=== PATIENT | female | born 1940 | race Caucasian/White ===

== ENCOUNTER 2016-08-30 09:09 | Inpatient (IN) ==
[2016-08-30] MEDS ORDERED: ACETAMINOPHEN 325 MG TABLET PO PRN (11:44)
[2016-08-30] MEDS ORDERED: ONDANSETRON 4 MG/2 ML VIAL IV PRN (11:44)
[2016-08-30] MEDS ORDERED: ZALEPLON 5 MG CAPSULE PO PRN (11:44)
[2016-08-30] MEDS ORDERED: DOCUSATE SODIUM 100 MG CAPSULE PO PRN (11:44)
[2016-08-30] MEDS ORDERED: MAGNESIUM SULF RIDER 2 GM in PREMIX 1 EACH IV PRN (11:46)
[2016-08-30] MEDS ORDERED: MAGNESIUM SULF RIDER 4 GM in PREMIX 1 EACH IV PRN (11:46)
--- NOTE | 2016-08-30 12:22 | EKG Report ---
Stationary ECG Study [facility] Test Date: 08/30/2016 12:22:21 PM Pat Name: NILSA BRONSON Department: Room: 265 Gender: F Custodial Manager: [place] : 1940 Requested by: Isabela Jaramillo Order Number: [id number] Cami MD: GORDON DE LEON Intervals [place] Rate: 70 P: 999 [place]: 0 QRS: -78 QRSD: 173 T: 96 QT: 476 QTc: 496 Interpretive Statements ELECTRONIC VENTRICULAR PACEMAKER ABNORMAL RHYTHM ECG Electronically Signed On 08-30-16 17:12:28 CDT by GORDON DE LEON [email or web address]
--- NOTE | 2016-08-30 12:46 | Cardiology History & Physical ---
Assessment and Plan - Time spent with patient Time spent with patient: Less than 30 minutes (1) Volume overload Status: Acute Assessment and plan: See plan of care listed below. Current Visit: Yes (2) Paroxysmal atrial fibrillation Status: Chronic Assessment and plan: See plan of care listed below. Current Visit: No (3) Chronic anticoagulation Status: Chronic Assessment and plan: See plan of care listed below. Current Visit: No (4) History of atrioventricular evans ablation Status: Chronic Assessment and plan: See plan of care listed below. Current Visit: Yes (5) Status post placement of cardiac pacemaker Status: Chronic Assessment and plan: See plan of care listed below. Current Visit: No (6) Hypertension Status: Chronic Assessment and plan: See plan of care listed below. Current Visit: No (7) Hyperlipidemia Status: Chronic Assessment and plan: See plan of care listed below. Current Visit: No (8) IBS (irritable bowel syndrome) Status: Chronic Assessment and plan: See plan of care listed below. Current Visit: Yes (9) GERD (gastroesophageal reflux disease) Status: Acute Assessment and plan: See plan of care listed below. Current Visit: Yes (10) Diverticulosis Status: Chronic Assessment and plan: See plan of care listed below. 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 AVENDAÑO PCP: DR. JULIA GREEN Ms. Espino is a 76 year old female who has been followed by Dr. Avendaño for several years. She has a history of paroxysmal atrial fibrillation, pulmonary hypertension, diverticulosis, GERD, esophageal stricture, hypertension , hyperlipidemia. Risk factors are significant for: age, hypertension, dyslipidemia, sedentary lifestyle. She is also followed by cardiology at [facility] in [place], [place] since her son resides in [place]. She has been cardioverted on numerous occasions (9 total) with the last being 12/21/15. She is status post AV node ablation and [employer] dual-chamber pacemaker implant 04/12/16. She is chronically anticoagulated with Coumadin. She was transferred to our facility as a direct admit from [facility] for further evaluation of congestive heart failure. Ms. Espino presented to [facility] on 08/28/16 after having a near syncopal episode and a feeling of tightness around the upper abdomen. She has noticed increased dyspnea on exertion in the past few months and lower extremity edema. She has also complained of some nausea and frequent palpitations. Yesterday, her proBNP was 3302.8. Clinically, she looks good, she has no peripheral edema and her lungs are fairly clear. She was recently seen in clinic by Dr. Avendaño on . At that time, she complained of occasional palpitations, BLE edema, and SLATER. Her pacemaker was interrogated and her rate response parameters were changed to see if her heart rate could be allowed to come up more significantly with exercise. Recent holter monitor revealed a predominantly ventricular paced rhythm with rare PVCs with minimum HR 67 and maximum HR 108 with average of 72 bpm. Ms. Espino recently underwent a myocardial perfusion stress test at [facility] on which revealed an ejection fraction of 61% and normal myocardial perfusion images, unchanged from 10/26/11 study. EKG today shows a ventricular paced rhythm. Will further discuss with Dr. Avendaño and await additional recommendations. ASSESSMENT/PLAN: 1. VOLUME OVERLOAD - Will continue diuresis with IV Lasix. Monitor BMP, BNP. 2. PAROXYSMAL ATRIAL FIBRILLATION - Currently in a ventricular paced rhythm. 3. CHRONIC ANTICOAGULATION - Continue coumadin. INR 1.4 today. Will monitor PT/ INR. 4. S/P AV EVANS ABLATION - Done on 04/12/16. 5. S/P DUAL CHAMBER PACEMAKER IMPLANTATION - Done on 04/12/16 at [facility]. Patient has a [employer] device. 6. HYPERTENSION - Currently well controlled. Will continue to monitor and adjust accordingly. Continue beta patrizia, ARB, CCB. 7. HYPERLIPIDEMIA - Continue lipid-lowering agent. Will recheck lipid panel in AM. 8. IBS 9. GERD 10. DIVERTICULOSIS Home Medications Medication Instructions Recorded Confirmed Type Ascorbic Acid [Vitamin C] 1,000 mg PO BID 07/04/16 07/04/16 History Aspirin EC Tab 81 mg PO DAILY 07/04/16 07/04/16 History Cholecalciferol (Vitamin D3) 1,000 unit PO DAILY 07/04/16 07/04/16 History [Vitamin D3] Estradiol Tab [Estrace Tab] 0.5 mg PO QOTHER DAY 07/04/16 07/04/16 History Magnesium Oxide [Magox 400] 400 mg PO BID 07/04/16 07/04/16 History Metoprolol Tartrate Tab [Lopressor 50 mg PO BID 07/04/16 07/04/16 History Tab] Mometasone 50 Mcg Nasal Prim 2 spray BOTH NARES DAILY 07/04/16 07/04/16 History [Nasonex Nasal Prim] Pantoprazole Tab [Protonix Tab] 40 mg PO DAILY 07/04/16 07/04/16 History Warfarin [Coumadin] 5 mg PO QOTHER DAY@1800 07/04/16 07/04/16 History Warfarin [Coumadin] 7.5 mg PO QOTHER DAY@1800 07/04/16 07/04/16 History amLODIPine [Norvasc] 5 mg PO DAILY 07/04/16 07/04/16 History Allergies Allergy/AdvReac Type Severity Reaction Status Date / Time cefuroxime [From Ceftin] Allergy Verified 07/04/16 08:49 ciprofloxacin [From Cipro] Allergy Verified 07/04/16 08:49 codeine Allergy Verified 07/04/16 08:49 ondansetron Allergy Verified 07/04/16 08:49 [From Zofran (as hydrochloride)] pentazocine [From Talwin] Allergy Verified 07/04/16 08:49 Qgciltc-Jhs-Jeu Reductase Allergy Verified 07/04/16 08:49 Inhibitor Sulfa (Sulfonamide Allergy Verified 07/04/16 08:49 Antibiotics) tramadol [From Ultram] Allergy Verified 07/04/16 08:49 antihistamines Allergy Uncoded 07/04/16 08:49 Review of systems: - Constitutional: Present: fatigue, As per HPI. Absent: anorexia, chills, daytime sleepiness, excessive sweating, fever(s), frequent falls, headache(s), increased appetite, lethargy, malaise, night sweats, stops breathing during sleep, weakness, weight gain, weight loss. - EENT Eyes: Present: As per HPI. Absent: blurry vision, diplopia, loss of vision Ears: Present: As per HPI. Absent: decreased hearing, ear discharge, ear pain Nose, mouth and throat: Present: As per HPI. Absent: dysphagia, epistaxis, headache(s), hoarseness, lip swelling, nasal congestion, neck mass, neck pain, sinus pressure, sore throat, throat swelling, tongue swelling, vertigo - Cardiovascular: Present: dyspnea, dyspnea on exertion, edema, orthopnea, palpitations, lightheadedness, as per HPI. Absent: chest pain at rest, chest pain with activity, claudication, diaphoresis, radiating jaw, neck or arm pain, PND - Respiratory: Present: dyspnea, dyspnea on exertion, as per HPI. Absent: cough , hemoptysis, wheezing, snoring, pain on inspiration - Gastrointestinal: Present: abdominal pain, nausea, As per HPI. Absent: bloating, change in bowel habits, constipation, diarrhea, heartburn, hematemesis , hematochezia, loose stools, melena, vomiting - Genitourinary: Present: As per HPI. Absent: difficulty urinating, dysuria, flank pain, hematuria, nocturia, urinary frequency, urinary incontinence - Musculoskeletal: Present: As per HPI. Absent: arthralgias, back pain, joint swelling, limited range of motion, muscle cramps, muscle weakness, myalgias - Neurological: Present: near syncope, As per HPI. Absent: abnormal gait, abnormal speech, behavioral changes, confusion, convulsions, disequilibrium, dizziness, focal weakness, frequent falls, headache(s), memory loss, numbness, paresthesias, radicular pain, tremor(s) - Psychiatric: Present: As per HPI. Absent: anxiety, confusion, depression, panic attacks - Endocrine: Present: fatigue, As per HPI. Absent: cold intolerance, heat intolerance, polydipsia, polyphagia - Hematologic/Lymphatic: Present: As per HPI. Absent: easy bleeding, easy bruising, lymphadenopathy Medical,Surgical,& Family Hx - Medical History Cardio: History of: Cardiac Dysrhythmia (atrial fib), CAD, Hypertension, Pacemaker (march 2016), Cardiovascular Problems (Cardiac ablation x 3, Cardiac conversion x 9--2015) Neurology: No history of: Seizures HEENT: History of: Eye Problem (glasses) Endocrine: History of: Dyslipidemia No history of: Thyroid Disorder Respiratory: History of: Respiratory Problems (chronic sob with exertion) No history of: Obstructive Sleep Apnea Gastrointestinal: History of: GERD, GI Problems (esophageal spasms) No history of: Hepatitis, Liver Problems Musculoskeletal: History of: Back/Neck Problems (neck surgey on neck-1986) Hematology: History of: Anemia No history of: Blood Transfusion Reaction Other: No history of: Anesthesia Reactions, Cancer - Surgical History Cardiac Surgeries: Sugical HX of: Cardiac Catheterization (x2) Patient Denies: Internal Defibrillator HEENT Surgeries: Surgical HX of: Eye Surgery (cataracts) Patient denies: Tonsilectomy & Adenoidectomy Abdominal Surgeries: Surgical HX of: Appendectomy, Cholecystectomy, Colonoscopy , EGD Reproductive Surgeries: Surgical HX of;: Hysterectomy Patient denies;: Breast Surgery Orthopedic Surgeries: Surgical HX of;: Orthopedic Surgery (broken foot-2016), Total Knee Replacement (bilateral) - Family History Family History: Reports;: Family Cancer (mother-ovarian, sister-breast) - Social History Smoking Status: Never smoker Frequency of Alcohol Use: None Type of Drug Use: None Marital Status: Lives With:: Spouse Functional capacity: independent ambulation Cardiology Physical Exam - Constitutional Vitals: Vital Signs Temp Pulse Resp BP Pulse Ox 95.9 F L 70 18 132/63 98 08/30/16 12:13 08/30/16 12:13 08/30/16 12:13 08/30/16 12:13 08/30/16 12:13 Intake and Output 08/29/16 08/30/16 08/30/16 22:59 06:59 14:59 Other: Weight 164 lb Patient Weight 08/31/16 06:59 Weight 164 lb Exam: General appearance: Pleasant and cooperative. Normal weight, no acute distress. - Head Head exam: Present: normal inspection, normocephalic, atraumatic. Absent: hematoma, laceration - Eye Eye exam: Present: EOMI. Absent: conjunctival injection, nystagmus, periorbital swelling, scleral icterus, laceration to eyelids Pupils: Present: PERRL. Absent: constricted, dilated, fixed, irregular, unequal - ENT ENT exam: Present: normal exam, normal external ear exam - Neck Neck exam: Present: normal inspection. Absent: lymphadenopathy, meningismus, tenderness, thyromegaly - Respiratory Respiratory exam: Present: clear to auscultation bilaterally. Absent: accessory muscle use, chest wall tenderness - Cardiovascular Cardiovascular exam: Present: regular rate and rhythm (v-paced). Absent: carotid bruit, gallop, JVD, rubs, murmur - GI/Abdominal GI/Abdominal exam: Present: normal bowel sounds, soft. Absent: distended, firm , guarding, hernia, mass, tenderness, rebound. - Extremities Exam Extremities exam: Present: normal inspection, normal capillary refill. Upper extremity pulses 2+. Lower extremity pulses 2+. Absent: calf tenderness, edema -Musculoskeletal Exam Musculoskeletal: Present: No Fluid Collection, No Pain, Normal Range of Motion - Back Exam Back exam: Present: normal inspection. Absent: muscle spasm, vertebral tenderness - Neurological Exam Neurological exam: Present: alert, oriented X3, grossly intact without resting or essential tremor - Psychiatric Psychiatric exam: Present: normal affect, normal mood - Skin Skin exam: Present: normal color, warm, dry, intact. Absent: cyanosis, diaphoretic, rash, urticaria Result/EKG - Labs Lab Results: I have reviewed the past 24 hour labs - EKG EKG results: interpreted by me (ventricular paced)
--- NOTE | 2016-08-30 14:14 | EKG Report ---
Stationary ECG Study [facility] Test Date: 08/30/2016 2:15:18 PM Pat Name: NILSA BRONSON Department: Room: 265 Gender: F Licensed Optician: : 1940 Requested by: Karena Davis Order Number: [id number] Reading MD: GORDON DE LEON Intervals [place] Rate: 70 P: 999 [place]: 0 QRS: -82 QRSD: 173 T: 69 QT: 491 QTc: 511 Interpretive Statements ELECTRONIC VENTRICULAR PACEMAKER ABNORMAL RHYTHM ECG Electronically Signed On 08-30-16 17:12:54 CDT by GORDON DE LEON [id number]
[2016-08-30 15:56] LABS: Troponin I Only < 0.015 NG/ML (0.00-0.045)
[2016-08-30] MEDS ORDERED: FUROSEMIDE 40 MG/4 ML VIAL IV SCH (16:00)
--- NOTE | 2016-08-30 16:45 | ECHO Report ---
Thomas Espino Exam Date: 08/30/2016 16:03 Referring Physician: Technologist: Age: 76 Ht (in): Wt (lb): Gender: F Exam Location: [facility] Echo Indications: BP: / HR: Rhythm: Sinus Technical Quality: Fair IMPRESSIONS Normal left ventricular size and wall thickness Normal left ventricular systolic wall motion without segmental wall motion abnormality and ejection fraction estimated to be in the 55-60% range Mild aortic and mitral valvular sclerosis without evidence of stenosis or decreased leaflet excursion Left atrial dimension is within the range of normal Mild right ventricular enlargement Tricuspid insufficiency at velocities suggesting systolic PA pressures of 50 mmHg Aortic root dimension within the range of normal MEASUREMENTS (Male / Female) Normal Values 2D ECHO LV Diastolic Diameter PLAX 3.8 cm 4.2 - 5.9 / 3.9 - 5.3 cm LV Systolic Diameter PLAX 2.7 cm LV Fractional Shortening PLAX 30.0 % IVS Diastolic Thickness 1.1 cm 0.6 - 1.0 / 0.6 - 0.9 cm LVPW Diastolic Thickness 1.0 cm 0.6 - 1.0 / 0.6 - 0.9 cm RV Internal Dim ED PLAX 4.1 cm Aortic Root Diameter 3.2 cm LA Systolic Diameter LX 3.0 cm 3.0 - 4.0 / 2.7 - 3.8 cm DOPPLER TR Peak Velocity 314.0 cm/s TR Peak Gradient 39.4 mmHg FINDINGS Left Ventricle Right Ventricle Right Atrium Left Atrium Mitral Valve Aortic Valve Tricuspid Valve Pulmonic Valve Pericardium Aorta Luis Avendaño MD (Electronically Signed) Final Date: 30 August 2016 16:44
[2016-08-30 17:53] LABS: Apearance,Urine CLEAR (Clear); Bilirubin,Urine Negative (Negative); Blood, Urine Negative (Negative); Glucose,Urine (UA) Negative (Negative); Ketones,Urine Negative (Negative); Nitrite,Urine Negative (Negative); Protein,Urine Negative; RBC,Urine <1 /HPF (0-4); Squamous Epithelial Cell,Urine Occasional /HPF (0-10); Urine Color Straw (Yellow); Urine Specific Gravity 1.003 (1.001-1.035); Urine Urobilinogen < 2.0 EU/DL (0.2-1.0); WBC,Urine 1 /HPF (0-6)
[2016-08-30 20:36] LABS: Troponin I Only < 0.015 NG/ML (0.00-0.045)
[2016-08-30] MEDS: METOPROLOL TARTRATE 50 MG TABLET PO SCH (21:30)
[2016-08-30] MEDS: LOSARTAN 25 MG TABLET PO SCH (21:30)
[2016-08-30] MEDS: MAGNESIUM OXIDE 400 MG TABLET PO SCH (21:30)
[2016-08-30] MEDS: amLODIPine 5 MG TABLET PO SCH (21:30)
--- NOTE | 2016-08-30 22:00 | Electrophysiology Consultation ---
History of Present Illness - Data of Consult Patient: new to practice Consult date: 08/30/16 Requesting Physician: Luis Avendaño - Consult Narrative Reason for consult: SOB History of present illness: Ms. Espino is a 76 year old female, followed by dr. Avendaño. 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 She has a history of highly symptomatic, persistent atrial fibrillation, for which she was cardioverted multiple times, finally, several months ago, she underwent dual-chamber pacemaker implantation and AV node ablation at [facility]. Thereafter, her antiarrhythmics were discontinued. Besides sotalol, she does not recall prior medications. Since this procedure, her shortness of breath worsened and she felt persistent fatigue. She has intermittent, more symptomatic episodes of shortness of brest, sometimes with anxiety, and bilateral chest pressure. She had prior ischemic evaluation, which did not show obstructive CAD. Her prior echo also showed ejection fraction 50-55%. She had moderate pulmonary hypertension on recent echo and she remembers having a right heart catheterization at [facility], a few weeks ago, but she was also told she has pulmonary hypertension. She does not recall prior lung disease and she never smoked. She is overweight but not morbidly obese. Her EKG shows atrial fibrillation, with ventricular pacing. Reviewing her prior EKGs, she had A. fib and sinus rhythm, several months ago. Her blood pressure is well controlled. She had a outpatient Holter, which showed acceptable heart rate trend, and A. fib with paced rhythm. Her Lasix was recently increased, and she diuresed 14 pounds, which made her shortness of breath better. The most recent echo shows preserved systolic function, moderate pulmonary hypertension, elevated mitral inflow, but insufficient data to estimate diastolic function due to A. fib and paced rhythm. There are no severe valvular abnormalities. There is mild biatrial enlargement. CC: Luis Avendaño MD - Home Medications and Allergies Home Medications: Home Medications Medication Instructions Recorded Confirmed Type Aspirin EC Tab 81 mg PO DAILY 07/04/16 08/30/16 History Cholecalciferol (Vitamin D3) 1,000 unit PO DAILY 07/04/16 08/30/16 History [Vitamin D3] Estradiol Tab [Estrace Tab] 0.5 mg PO QOTHER DAY 07/04/16 08/30/16 History Magnesium Oxide [Magox 400] 400 mg PO BID 07/04/16 08/30/16 History Metoprolol Tartrate Tab [Lopressor 50 mg PO BID 07/04/16 08/30/16 History Tab] Pantoprazole Tab [Protonix Tab] 40 mg PO BEDTIME 07/04/16 08/30/16 History Warfarin [Coumadin] 5 mg PO MOWEFR 07/04/16 08/30/16 History Warfarin [Coumadin] 7.5 mg PO SUTUTHSA 07/04/16 08/30/16 History amLODIPine [Norvasc] 5 mg PO BID 07/04/16 08/30/16 History ALPRAZolam [Alprazolam] 1 mg PO BEDTIME 08/30/16 08/30/16 History Furosemide [Furosemide] 40 mg PO DAILY 08/30/16 08/30/16 History Losartan [Cozaar] 12.5 mg PO BID 08/30/16 08/30/16 History Tapentadol HCl [Nucynta] 50 mg PO Q6HR PRN 08/30/16 08/30/16 History Allergies/Adverse Reactions: Allergies Allergy/AdvReac Type Severity Reaction Status Date / Time cefuroxime [From Ceftin] Allergy Verified 07/04/16 08:49 ciprofloxacin [From Cipro] Allergy Verified 07/04/16 08:49 codeine Allergy Verified 07/04/16 08:49 ondansetron Allergy Verified 07/04/16 08:49 [From Zofran (as hydrochloride)] pentazocine [From Talwin] Allergy Verified 07/04/16 08:49 Hdqkabn-Yjd-Dpo Reductase Allergy Verified 07/04/16 08:49 Inhibitor Sulfa (Sulfonamide Allergy Verified 07/04/16 08:49 Antibiotics) tramadol [From Ultram] Allergy Verified 07/04/16 08:49 antihistamines Allergy Uncoded 07/04/16 08:49 Medical,Surgical,& Family Hx - Medical History Cardio: History of: Cardiac Dysrhythmia (atrial fib), CAD, Hypertension, Pacemaker (march 2016), Cardiovascular Problems (Cardiac ablation x 3, Cardiac conversion x 9--2015) No history of: CHF Neurology: No history of: Seizures HEENT: History of: Eye Problem (glasses) Endocrine: History of: Dyslipidemia No history of: Thyroid Disorder Respiratory: History of: Respiratory Problems (chronic sob with exertion) No history of: Obstructive Sleep Apnea Gastrointestinal: History of: GERD, GI Problems (esophageal spasms) No history of: Hepatitis, Liver Problems Musculoskeletal: History of: Back/Neck Problems (neck surgey on neck-1986) Hematology: History of: Anemia No history of: Blood Transfusion Reaction Other: No history of: Anesthesia Reactions, Cancer - Surgical History Cardiac Surgeries: Sugical HX of: Cardiac Catheterization (x2) Patient Denies: Internal Defibrillator HEENT Surgeries: Surgical HX of: Eye Surgery (cataracts) Patient denies: Tonsilectomy & Adenoidectomy Abdominal Surgeries: Surgical HX of: Appendectomy, Cholecystectomy, Colonoscopy , EGD Reproductive Surgeries: Surgical HX of;: Hysterectomy Patient denies;: Breast Surgery Orthopedic Surgeries: Surgical HX of;: Orthopedic Surgery (broken foot-2016), Total Knee Replacement (bilateral) - Family History Family History: Reports;: Family Cancer (mother-ovarian, sister-breast) - Social History Smoking Status: Never smoker Frequency of Alcohol Use: None Type of Drug Use: None 12 point system: reviewed and no additional remarkable complaints except as stated Exam - Constitutional Vitals: Period Temp Pulse Resp BP Sys/Luna Pulse Ox Last 24 Hr 95.9 F-98.3 F 70-80 18-18 118-132/60-63 96-98 General appearance: no acute distress, over weight - Head Head exam: Present: normal inspection, normocephalic - Eye Eye exam: Absent: conjunctival injection, scleral icterus Pupils: Absent: dilated - ENT ENT exam: Present: normal external ear exam - Neck Neck exam: Present: normal inspection. Absent: thyromegaly - Respiratory Respiratory exam: Present: clear to auscultation bilaterally, prolonged expiratory phase. Absent: rhonchi, wheezes - Cardiovascular Cardiovascular exam: Present: regular rate and rhythm, systolic murmur. Absent : JVD - GI/Abdominal GI/Abdominal exam: Present: normal bowel sounds. Absent: distended, guarding - Extremities Exam Extremities exam: Present: normal inspection, normal capillary refill, edema (1+ ) - Back Exam Back exam: Present: normal inspection - Neurological Exam Neurological exam: Present: alert, oriented X3 - Psychiatric Psychiatric exam: Present: normal affect, normal mood - Skin Skin exam: Present: normal color, warm. Absent: cyanosis Results - Labs Lab Results: I have reviewed the past 24 hour labs Assessment and Plan (1) Pulmonary hypertension Status: Chronic Assessment and plan: 76-year-old female, with worsening shortness of breath, since AV node ablation, dual-chamber pacemaker implantation, now in persistent atrial fibrillation, moderate pulmonary hypertension, hypertension, hyperlipidemia, volume overload. Although most patients do feel better with proper rate control after AV node ablation/pacemaker implantation, in this case it seems to have exacerbated her underlying diastolic dysfunction. She is not a candidate for PROJECT CONTROL OFFICER, ejection fraction is preserved. There are data that PROJECT CONTROL OFFICER also improves diastolic function , but it is not an established indication for PROJECT CONTROL OFFICER yet. -Recommend to evaluate for secondary causes for pulmonary hypertension. Suggest PFTs, pulmonary evaluation, sleep study, it was not done prior. Obtain recent RHC report from [facility]. Her blood pressure is already well controlled, she is on a calcium channel patrizia, we may consider adding Imdur. -She responded well to diuresis so far. -Anxiety seems to also have a role here. -Please contact [employer] in a.m. to interrogate the pacemaker. The Holter showed acceptable heart rate trend. If her symptoms are due to diastolic dysfunction mostly, we could actually use a lower base rate, with the lower upper rate response. -Recommend a walking stress test tomorrow, GXT only. Assess exertional symptoms , correlate with heart rate change. Confirm adequate rate response with pacemaker. -If none of the above measures help and no other etiology is suggested, we may consider pulmonary vein isolation, rhythm control of atrial fibrillation. I doubt adding an antiarrhythmic and doing a cardioversion without ablation would be of help, she had multiple attempts before. Unfortunately, the expected benefits are also lower, after AV node ablation. -Recent INR was subtherapeutic and the Coumadin fell off the list. I am restarting 7.5 mg daily, recheck INR tomorrow. Current Visit: No (2) Chronic anticoagulation Status: Chronic Current Visit: No (3) Diverticulosis Status: Chronic Current Visit: No (4) Hypertension Status: Chronic Current Visit: No (5) Hyperlipidemia Status: Chronic Current Visit: No (6) Volume overload Status: Acute Current Visit: Yes (7) History of atrioventricular winston ablation Status: Chronic Current Visit: Yes (8) IBS (irritable bowel syndrome) Status: Chronic Current Visit: Yes
[2016-08-31 04:43] LABS: Basophils % 0.3 % (0.0-0.8); Eosinophils % 0.7 % (0.00-10.9); Hematocrit 37.8 VOL% (35.7-47.0); Hemoglobin 12.5 GM/DL (12.0-16.0); Immature Granulocytes % 0.2 %; Immature Granulocytes Absolute 0.01 #; Lymphocytes # 1.9 10*3/uL (1.4-4.0); Lymphocytes % 32.5 % (21.3-54.2); Mean Corpuscular HGB Conc 33.1 GM/DL (32-36); Mean Corpuscular Hemoglobin 28 PG (27-34); Mean Corpuscular Volume 84.4 FL (87-102); Mean Platelet Volume 12.8 FL (9.6-12.0); Monocytes # 0.6 10*3/uL (0.11-0.8); Monocytes % 9.8 % (1.7-12.7); Neutrophils # 3.3 10*3/uL (1.4-7.4); Neutrophils % 56.5 % (38.7-73.9); Platelet Count 189 T/CUMM (130-400); Red Blood Count 4.48 MC/CUMM (3.8-5.5); Red Cell Distribution Width 15.3 % (9.3-17.3); White Blood Count 5.8 T/CUMM (4-12)
[2016-08-31 05:15] LABS: INR 1.9
[2016-08-31 05:16] LABS: Albumin 3.5 G/DL (3.4-5.0); Bilirubin,Total 1.2 MG/DL (0.2-1.0); Calcium 9.2 MG/DL (8.5-10.1); Osmolality,Calculated 282.4 MOS/KG (273-304); Potassium 3.5 MMOL/L (3.5-5.1); Risk Ratio 4.55; Total Protein 6.9 G/DL (6.4-8.3); VLDL CHOLESTEROL 39.6 MG/DL
[2016-08-31 05:20] LABS: Troponin I Only < 0.015 NG/ML (0.00-0.045)
[2016-08-31 05:22] LABS: PT Patient Result 20.8 SECS
--- NOTE | 2016-08-31 08:36 | EKG Report ---
Stationary ECG Study [facility] Test Date: 08/31/2016 8:38:33 AM Pat Name: NILSA BRONSON Department: Room: 265 Gender: F Api Developer: EL[place] : 1940 Requested by: Karena Davis Order Number: [id number] Reading MD: NASH GONZALEZ Intervals [place] Rate: 78 P: 999 [place]: 0 QRS: -81 QRSD: 162 T: 91 QT: 470 QTc: 503 Interpretive Statements ELECTRONIC VENTRICULAR PACEMAKER at 78 bpm ABNORMAL RHYTHM ECG Electronically Signed On 08-31-16 11:09:33 CDT by NASH GONZALEZ [email or web address]
--- NOTE | 2016-08-31 09:34 | Electrophysiology Progress Not ---
Assessment and Plan (1) Pulmonary hypertension Status: Chronic Assessment and plan: 76-year-old female, with worsening shortness of breath, since AV node ablation, dual-chamber pacemaker implantation, now in persistent atrial fibrillation, moderate pulmonary hypertension, hypertension, hyperlipidemia, volume overload. Although most patients do feel better with proper rate control after AV node ablation/pacemaker implantation, in this case it seems to have exacerbated her underlying diastolic dysfunction. She is not a candidate for ALL SOURCE INTELLIGENCE, ejection fraction is preserved. There are data that ALL SOURCE INTELLIGENCE also improves diastolic function , but it is not an established indication for ALL SOURCE INTELLIGENCE yet. -Recommend to evaluate for secondary causes for pulmonary hypertension, SOB. Suggest PFTs, pulmonary evaluation, sleep study, it was not done prior. Her blood pressure is already well controlled, she is on a calcium channel patrizia, we may consider adding Imdur. -She responded well to diuresis so far. Recommend to increase Lasix -Please contact [employer] to interrogate the pacemaker. Scan the report into EMR. -The Holter showed acceptable heart rate trend. Depending on the results of the GXT today, I recommend a lower base rate, we can set the base rate at 55, with a less intense rate response, up 110 bpm at max exertion. Make sure the device is properly set in VVIR, or mode switched, as she had occasional episodes of tachycardia on telemetry overnight - undersensed A. fib with tracked V pacing needs to be ruled out -If none of the above measures help and no other etiology is suggested, we may consider pulmonary vein isolation, rhythm control of atrial fibrillation. I doubt adding an antiarrhythmic and doing a cardioversion without ablation would be of help, she had multiple attempts before. Unfortunately, the expected benefits are also lower, after AV node ablation. -Continue anticoagulation with Coumadin. Current Visit: No (2) Chronic anticoagulation Status: Chronic Current Visit: No (3) Diverticulosis Status: Chronic Current Visit: No (4) Hypertension Status: Chronic Current Visit: No (5) Hyperlipidemia Status: Chronic Current Visit: No (6) Volume overload Status: Acute Current Visit: Yes (7) History of atrioventricular winston ablation Status: Chronic Current Visit: Yes (8) IBS (irritable bowel syndrome) Status: Chronic Current Visit: Yes Electrophysiology Subjective Interval history: Reviewed [facility] reports from [facility]. The pulmonary hypertension does not appear to be severe, the PCWP was mildly elevated. Telemetry shows occasional tachycardia, otherwise quite unremarkable heart rate trend, A. fib with V pacing. Exam - Constitutional Vitals: Period Temp Pulse Resp BP Sys/Luna Pulse Ox Last 24 Hr 95.9 F-99.2 F 70-80 16-20 99-132/48-64 96-98 General appearance: normal weight, over weight - Head Head exam: Present: normal inspection, normocephalic - Eye Eye exam: Absent: conjunctival injection, scleral icterus Pupils: Absent: constricted, dilated - ENT ENT exam: Present: normal external ear exam - Neck Neck exam: Present: normal inspection. Absent: thyromegaly - Respiratory Respiratory exam: Present: clear to auscultation bilaterally. Absent: wheezes - Cardiovascular Cardiovascular exam: Present: regular rate and rhythm, systolic murmur. Absent : JVD - GI/Abdominal GI/Abdominal exam: Present: normal bowel sounds - Extremities Exam Extremities exam: Present: normal inspection, normal capillary refill. Absent: edema - Back Exam Back exam: Present: normal inspection - Neurological Exam Neurological exam: Present: alert, oriented X3 - Psychiatric Psychiatric exam: Present: normal affect, normal mood - Skin Skin exam: Present: normal color, warm. Absent: cyanosis Results - Labs CBC & BMP: 08/31/16 03:08 08/31/16 03:08 Lab Results: I have reviewed the past 24 hour labs
[2016-08-31] MEDS: ASPIRIN EC 81 MG TABLET PO SCH (10:34)
[2016-08-31] MEDS: METOPROLOL TARTRATE 50 MG TABLET PO SCH ×2 (10:34→21:40)
[2016-08-31] MEDS: FUROSEMIDE 40 MG TABLET PO SCH (10:34)
[2016-08-31] MEDS: LOSARTAN 25 MG TABLET PO SCH ×2 (10:34→21:40)
[2016-08-31] MEDS: CHOLECALCIFEROL 1,000 UNIT TABLET PO SCH (10:36)
[2016-08-31] MEDS: amLODIPine 5 MG TABLET PO SCH ×2 (10:36→21:40)
[2016-08-31] MEDS: MAGNESIUM OXIDE 400 MG TABLET PO SCH ×2 (10:36→21:39)
[2016-08-31] MEDS: PANTOPRAZOLE 40 MG TABLET PO SCH (10:36)
--- NOTE | 2016-08-31 11:53 | Cardiology Progress Note ---
<Bianca Davis E - Last Filed: 08/31/16 12:14> Assessment and Plan (1) Volume overload Status: Acute Assessment and plan: See plan of care listed below. Current Visit: Yes (2) Paroxysmal atrial fibrillation Status: Chronic Assessment and plan: See plan of care listed below. Current Visit: No (3) Chronic anticoagulation Status: Chronic Assessment and plan: See plan of care listed below. Current Visit: No (4) History of atrioventricular winston ablation Status: Chronic Assessment and plan: See plan of care listed below. Current Visit: Yes (5) Status post placement of cardiac pacemaker Status: Chronic Assessment and plan: See plan of care listed below. Current Visit: No (6) Hypertension Status: Chronic Assessment and plan: See plan of care listed below. Current Visit: No (7) Hyperlipidemia Status: Chronic Assessment and plan: See plan of care listed below. Current Visit: No (8) IBS (irritable bowel syndrome) Status: Chronic Assessment and plan: See plan of care listed below. Current Visit: Yes (9) GERD (gastroesophageal reflux disease) Status: Acute Assessment and plan: See plan of care listed below. Current Visit: Yes (10) Diverticulosis Status: Chronic Assessment and plan: See plan of care listed below. Current Visit: No Cardiology - PN: Subj Interval history: OBSERVATION ASSISTANT: DR. AVENDAÑO PCP: DR. JULIA GREEN SUMMARY: Ms. Espino is a 76 year old female with history of paroxysmal atrial fibrillation, pulmonary hypertension, diverticulosis, GERD, esophageal stricture, hypertension, hyperlipidemia who was transferred to our facility from [facility] for further evaluation of CHF. ASSESSMENT/PLAN: 1. PULMONARY HYPERTENSION - We will ask pulmonary to see her in evaluation for secondary causes of pulmonary hypertension. Suggest PFTs, possible sleep study. Also has sleep medicine to see her. 2. VOLUME OVERLOAD - Will continue diuresis with IV Lasix. Monitor BMP, BNP. 3. PAROXYSMAL ATRIAL FIBRILLATION - Currently in a ventricular paced rhythm. 3. CHRONIC ANTICOAGULATION - Continue coumadin. Will monitor PT/INR. 4. S/P AV WINSTON ABLATION - Done on 04/12/16. 5. S/P DUAL CHAMBER PACEMAKER IMPLANTATION - Done on 04/12/16 at [facility]. Patient has a Brandon Fritter device. 6. HYPERTENSION - Currently well controlled. Will continue to monitor and adjust accordingly. Continue beta patrizia, ARB, CCB. 7. HYPERLIPIDEMIA - Continue lipid-lowering agent. Will recheck lipid panel in AM. 8. IBS 9. GERD 10. DIVERTICULOSIS 11. ANXIETY - This seems to be playing a role in her symptoms. She reports she has not felt well since having her procedure in March and has had frequent anxiety over her continued illness. Exam (Progress Note) - Constitutional Vitals: Period Temp Pulse Resp BP Sys/Luna Pulse Ox Last 24 Hr 95.9 F-99.2 F 70-80 16-20 99-132/48-64 96-98 Result/EKG - Labs CBC & BMP: 08/31/16 03:08 08/31/16 03:08 Labs: Laboratory Results - last 24 hr 08/30/16 08/30/16 08/30/16 12:19 12:19 14:50 WBC RBC Hgb Hct MCV MCH MCHC RDW Plt Count MPV Neut % (Auto) Lymph % (Auto) [place] % (Auto) Eos % (Auto) Baso % (Auto) Neut # (Auto) Lymph # (Auto) [place] # (Auto) Eos # (Auto) Baso # (Auto) Immature Gran % Nucleated RBC % Immature Gran # Nucleated RBCs # INR PT Patient/Control Mix Sodium Potassium Chloride Carbon Dioxide Anion Gap BUN Creatinine GFR Calculation BUN/Creatinine Ratio Glucose Calculated Osmolality Calcium Total Bilirubin AST ALT Alkaline Phosphatase Total Creatine Kinase CK-MB (CK-2) Troponin I B-Natriuretic Peptide 198 H 204 H Total Protein Albumin Globulin Albumin/Globulin Ratio Triglycerides Cholesterol LDL Cholesterol VLDL Cholesterol HDL Cholesterol Heart Disease Risk Ratio TSH 3rd Generation 1.770 Urine Color Urine Appearance Urine pH Ur Specific [place] Urine Protein Urine Glucose (UA) Urine Ketones Urine Blood Urine Nitrate Urine Bilirubin Urine Urobilinogen Urine Leukocytes Urine RBC Urine WBC Ur Squamous Epith Cells Ur Culture Indicated? 08/30/16 08/30/16 08/30/16 14:50 17:40 19:55 WBC RBC Hgb Hct MCV MCH MCHC RDW Plt Count MPV Neut % (Auto) Lymph % (Auto) [place] % (Auto) Eos % (Auto) Baso % (Auto) Neut # (Auto) Lymph # (Auto) [place] # (Auto) Eos # (Auto) Baso # (Auto) Immature Gran % Nucleated RBC % Immature Gran # Nucleated RBCs # INR PT Patient/Control Mix Sodium Potassium Chloride Carbon Dioxide Anion Gap BUN Creatinine GFR Calculation BUN/Creatinine Ratio Glucose Calculated Osmolality Calcium Total Bilirubin AST ALT Alkaline Phosphatase Total Creatine Kinase 66 61 CK-MB (CK-2) < 1.0 < 1.0 Troponin I < 0.015 < 0.015 B-Natriuretic Peptide Total Protein Albumin Globulin Albumin/Globulin Ratio Triglycerides Cholesterol LDL Cholesterol VLDL Cholesterol HDL Cholesterol Heart Disease Risk Ratio TSH 3rd Generation Urine Color Straw Urine Appearance Clear Urine pH 8.0 Ur Specific [place] 1.003 Urine Protein Negative Urine Glucose (UA) Negative Urine Ketones Negative Urine Blood Negative Urine Nitrate Negative Urine Bilirubin Negative Urine Urobilinogen < 2.0 H Urine Leukocytes Negative Urine RBC <1 Urine WBC 1 Ur Squamous Epith Cells Occasional Ur Culture Indicated? Not indicated 08/31/16 08/31/16 08/31/16 03:08 03:08 03:08 WBC 5.8 RBC 4.48 Hgb 12.5 Hct 37.8 MCV 84.4 L MCH 28 MCHC 33.1 RDW 15.3 Plt Count 189 MPV 12.8 H Neut % (Auto) 56.5 Lymph % (Auto) 32.5 [place] % (Auto) 9.8 Eos % (Auto) 0.7 Baso % (Auto) 0.3 Neut # (Auto) 3.3 Lymph # (Auto) 1.9 [place] # (Auto) 0.6 Eos # (Auto) 0.0 Baso # (Auto) 0.0 Immature Gran % 0.2 Nucleated RBC % 0.0 Immature Gran # 0.01 Nucleated RBCs # 0.00 INR 1.9 PT Patient/Control Mix 20.8 Sodium 140 Potassium 3.5 Chloride 100 Carbon Dioxide 30 Anion Gap 13.5 BUN 23 H Creatinine 1.30 H GFR Calculation 40 BUN/Creatinine Ratio 17.00 Glucose 95 Calculated Osmolality 282.4 Calcium 9.2 Total Bilirubin 1.20 H AST 25 ALT 34 Alkaline Phosphatase 136 H Total Creatine Kinase CK-MB (CK-2) Troponin I B-Natriuretic Peptide Total Protein 6.9 Albumin 3.5 Globulin 3.4 Albumin/Globulin Ratio 1.0 L Triglycerides 198 H Cholesterol 241 H LDL Cholesterol 156.0 VLDL Cholesterol 39.6 HDL Cholesterol 53 Heart Disease Risk Ratio 4.55 TSH 3rd Generation Urine Color Urine Appearance Urine pH Ur Specific [place] Urine Protein Urine Glucose (UA) Urine Ketones Urine Blood Urine Nitrate Urine Bilirubin Urine Urobilinogen Urine Leukocytes Urine RBC Urine WBC Ur Squamous Epith Cells Ur Culture Indicated? 08/31/16 08/31/16 03:08 03:09 WBC RBC Hgb Hct MCV MCH MCHC RDW Plt Count MPV Neut % (Auto) Lymph % (Auto) [place] % (Auto) Eos % (Auto) Baso % (Auto) Neut # (Auto) Lymph # (Auto) [place] # (Auto) Eos # (Auto) Baso # (Auto) Immature Gran % Nucleated RBC % Immature Gran # Nucleated RBCs # INR PT Patient/Control Mix Sodium Potassium Chloride Carbon Dioxide Anion Gap BUN Creatinine GFR Calculation BUN/Creatinine Ratio Glucose Calculated Osmolality Calcium Total Bilirubin AST ALT Alkaline Phosphatase Total Creatine Kinase 52 CK-MB (CK-2) < 1.0 Troponin I < 0.015 B-Natriuretic Peptide 239 H Total Protein Albumin Globulin Albumin/Globulin Ratio Triglycerides Cholesterol LDL Cholesterol VLDL Cholesterol HDL Cholesterol Heart Disease Risk Ratio TSH 3rd Generation Urine Color Urine Appearance Urine pH Ur Specific [place] Urine Protein Urine Glucose (UA) Urine Ketones Urine Blood Urine Nitrate Urine Bilirubin Urine Urobilinogen Urine Leukocytes Urine RBC Urine WBC Ur Squamous Epith Cells Ur Culture Indicated? <Luis Avendaño - Last Filed: 08/31/16 12:56> Cardiology - PN: Subj Interval history: I agree with the assessment that a lot of her symptoms are related to the anxiety. I think she had a lack of understanding about what the ablation meant and how it has affected her heart rate. I think she is experience a little depression related to having become pacemaker dependent. I am going to try her on a low-dose of Zoloft at bedtime and see how she responds to that. I have discussed in detail the particulars of this case and I have examined the patient and reviewed the patient's chart both current and old. I was directly involved in the patient's evaluation and management and I completely agree with Bianca Davis NP regarding this patient's evaluation and treatment plan. Exam (Progress Note) - Constitutional Vitals: Period Temp Pulse Resp BP Sys/Luna Pulse Ox Last 24 Hr 96.5 F-99.2 F 70-80 16-20 99-128/48-66 92-98 Result/EKG - Labs CBC & BMP: 08/31/16 03:08 08/31/16 03:08 Labs: Laboratory Results - last 24 hr 08/30/16 08/30/16 08/30/16 12:19 12:19 14:50 WBC RBC Hgb Hct MCV MCH MCHC RDW Plt Count MPV Neut % (Auto) Lymph % (Auto) [place] % (Auto) Eos % (Auto) Baso % (Auto) Neut # (Auto) Lymph # (Auto) [place] # (Auto) Eos # (Auto) Baso # (Auto) Immature Gran % Nucleated RBC % Immature Gran # Nucleated RBCs # INR PT Patient/Control Mix Sodium Potassium Chloride Carbon Dioxide Anion Gap BUN Creatinine GFR Calculation BUN/Creatinine Ratio Glucose Calculated Osmolality Calcium Total Bilirubin AST ALT Alkaline Phosphatase Total Creatine Kinase CK-MB (CK-2) Troponin I B-Natriuretic Peptide 198 H 204 H Total Protein Albumin Globulin Albumin/Globulin Ratio Triglycerides Cholesterol LDL Cholesterol VLDL Cholesterol HDL Cholesterol Heart Disease Risk Ratio TSH 3rd Generation 1.770 Urine Color Urine Appearance Urine pH Ur Specific [place] Urine Protein Urine Glucose (UA) Urine Ketones Urine Blood Urine Nitrate Urine Bilirubin Urine Urobilinogen Urine Leukocytes Urine RBC Urine WBC Ur Squamous Epith Cells Ur Culture Indicated? 08/30/16 08/30/16 08/30/16 14:50 17:40 19:55 WBC RBC Hgb Hct MCV MCH MCHC RDW Plt Count MPV Neut % (Auto) Lymph % (Auto) [place] % (Auto) Eos % (Auto) Baso % (Auto) Neut # (Auto) Lymph # (Auto) [place] # (Auto) Eos # (Auto) Baso # (Auto) Immature Gran % Nucleated RBC % Immature Gran # Nucleated RBCs # INR PT Patient/Control Mix Sodium Potassium Chloride Carbon Dioxide Anion Gap BUN Creatinine GFR Calculation BUN/Creatinine Ratio Glucose Calculated Osmolality Calcium Total Bilirubin AST ALT Alkaline Phosphatase Total Creatine Kinase 66 61 CK-MB (CK-2) < 1.0 < 1.0 Troponin I < 0.015 < 0.015 B-Natriuretic Peptide Total Protein Albumin Globulin Albumin/Globulin Ratio Triglycerides Cholesterol LDL Cholesterol VLDL Cholesterol HDL Cholesterol Heart Disease Risk Ratio TSH 3rd Generation Urine Color Straw Urine Appearance Clear Urine pH 8.0 Ur Specific [place] 1.003 Urine Protein Negative Urine Glucose (UA) Negative Urine Ketones Negative Urine Blood Negative Urine Nitrate Negative Urine Bilirubin Negative Urine Urobilinogen < 2.0 H Urine Leukocytes Negative Urine RBC <1 Urine WBC 1 Ur Squamous Epith Cells Occasional Ur Culture Indicated? Not indicated 08/31/16 08/31/16 08/31/16 03:08 03:08 03:08 WBC 5.8 RBC 4.48 Hgb 12.5 Hct 37.8 MCV 84.4 L MCH 28 MCHC 33.1 RDW 15.3 Plt Count 189 MPV 12.8 H Neut % (Auto) 56.5 Lymph % (Auto) 32.5 [place] % (Auto) 9.8 Eos % (Auto) 0.7 Baso % (Auto) 0.3 Neut # (Auto) 3.3 Lymph # (Auto) 1.9 [place] # (Auto) 0.6 Eos # (Auto) 0.0 Baso # (Auto) 0.0 Immature Gran % 0.2 Nucleated RBC % 0.0 Immature Gran # 0.01 Nucleated RBCs # 0.00 INR 1.9 PT Patient/Control Mix 20.8 Sodium 140 Potassium 3.5 Chloride 100 Carbon Dioxide 30 Anion Gap 13.5 BUN 23 H Creatinine 1.30 H GFR Calculation 40 BUN/Creatinine Ratio 17.00 Glucose 95 Calculated Osmolality 282.4 Calcium 9.2 Total Bilirubin 1.20 H AST 25 ALT 34 Alkaline Phosphatase 136 H Total Creatine Kinase CK-MB (CK-2) Troponin I B-Natriuretic Peptide Total Protein 6.9 Albumin 3.5 Globulin 3.4 Albumin/Globulin Ratio 1.0 L Triglycerides 198 H Cholesterol 241 H LDL Cholesterol 156.0 VLDL Cholesterol 39.6 HDL Cholesterol 53 Heart Disease Risk Ratio 4.55 TSH 3rd Generation Urine Color Urine Appearance Urine pH Ur Specific [place] Urine Protein Urine Glucose (UA) Urine Ketones Urine Blood Urine Nitrate Urine Bilirubin Urine Urobilinogen Urine Leukocytes Urine RBC Urine WBC Ur Squamous Epith Cells Ur Culture Indicated? 08/31/16 08/31/16 03:08 03:09 WBC RBC Hgb Hct MCV MCH MCHC RDW Plt Count MPV Neut % (Auto) Lymph % (Auto) [place] % (Auto) Eos % (Auto) Baso % (Auto) Neut # (Auto) Lymph # (Auto) [place] # (Auto) Eos # (Auto) Baso # (Auto) Immature Gran % Nucleated RBC % Immature Gran # Nucleated RBCs # INR PT Patient/Control Mix Sodium Potassium Chloride Carbon Dioxide Anion Gap BUN Creatinine GFR Calculation BUN/Creatinine Ratio Glucose Calculated Osmolality Calcium Total Bilirubin AST ALT Alkaline Phosphatase Total Creatine Kinase 52 CK-MB (CK-2) < 1.0 Troponin I < 0.015 B-Natriuretic Peptide 239 H Total Protein Albumin Globulin Albumin/Globulin Ratio Triglycerides Cholesterol LDL Cholesterol VLDL Cholesterol HDL Cholesterol Heart Disease Risk Ratio TSH 3rd Generation Urine Color Urine Appearance Urine pH Ur Specific [place] Urine Protein Urine Glucose (UA) Urine Ketones Urine Blood Urine Nitrate Urine Bilirubin Urine Urobilinogen Urine Leukocytes Urine RBC Urine WBC Ur Squamous Epith Cells Ur Culture Indicated?
--- NOTE | 2016-08-31 12:14 | Event Note ---
THIS IS A LATE ENTRY FOR GXT STRESS TEST DONE AT 1015 AM. Ms. Espino was for GXT stress test this morning. Patient was transitioned to manual mode in stage II of Eyal protocol. Patient unable to keep up with pace in stage II. Patient had poor exercise tolerance and extreme fatigue. She had mild dyspnea on exertion but no chest pain, heaviness, or tightness. No dizziness, lightheadedness, or syncope. She had mild ST abnormalities but no significant EKG changes. Maximum heart rate achieved was 116. Target heart rate not reached due to patient's exercise intolerance. Dr. Rodrigues to read, interpret, and advise.
--- NOTE | 2016-08-31 12:46 | Sleep Medicine Consult ---
Assessment and Plan (1) Unspecified sleep apnea Status: Acute Assessment and plan: Though this patient lacks dramatic or overt symptoms of obstructive sleep apnea , she does have significant medical comorbidities that necessitate exclusion of obstructive sleep apnea. We will start with HST evaluation tonight and follow- up on these results. If this evaluation is negative, she will need in lab polysomnography. Thank you for this consult and the opportunity to participate in her care. Current Visit: Yes (2) Paroxysmal atrial fibrillation Status: Chronic Assessment and plan: The prevalence for obstructive sleep apnea patients with atrial fib can be as high as 80%. Controlling the underlying sleep apnea can result in an almost 50 % reduction in recurrence. Current Visit: No (3) Pulmonary hypertension Status: Chronic Assessment and plan: This patient does have moderate pulmonary hypertension. Mild to moderate pulmonary hypertension can be seen with untreated obstructive sleep apnea. It is usually mild unless there is concurrent disorders of chronic hypoxia or chronic respiratory failure. Current Visit: No History of Present Illness Chief complaint: Sleep apnea History of present illness: Ms. Espino is a 76 year old female admitted for refractory atrial fibrillation. She has had previous AV node ablation and pacemaker placement for severe atrial fib that is recurrent. She was noted to have moderate pulmonary hypertension with RV pressures in the 40s. Sleep medicine was consulted to exclude sleep apnea. The patient usually retires after 11 PM. She usually will awaken after about 7-1/2 hours of sleep. She has very mild snoring and is not lab according to her . She does not awaken from sleep short of breath and does not have a history of witnessed apneas. Her sleep is usually refreshing and she denies any significant sleepiness during the day. She does twitch her feet frequently during sleep. She does feel very tired during the day and has poor exercise tolerance. She does get short of breath with routine activity. She does awaken 2-3 times a night to urinate. Home Medications Medication Instructions Recorded Confirmed Type Aspirin EC Tab 81 mg PO DAILY 07/04/16 08/30/16 History Cholecalciferol (Vitamin D3) 1,000 unit PO DAILY 07/04/16 08/30/16 History [Vitamin D3] Estradiol Tab [Estrace Tab] 0.5 mg PO QOTHER DAY 07/04/16 08/30/16 History Magnesium Oxide [Magox 400] 400 mg PO BID 07/04/16 08/30/16 History Metoprolol Tartrate Tab [Lopressor 50 mg PO BID 07/04/16 08/30/16 History Tab] Pantoprazole Tab [Protonix Tab] 40 mg PO BEDTIME 07/04/16 08/30/16 History Warfarin [Coumadin] 5 mg PO MOWEFR 07/04/16 08/30/16 History Warfarin [Coumadin] 7.5 mg PO SUTUTHSA 07/04/16 08/30/16 History amLODIPine [Norvasc] 5 mg PO BID 07/04/16 08/30/16 History ALPRAZolam [Alprazolam] 1 mg PO BEDTIME 08/30/16 08/30/16 History Furosemide [Furosemide] 40 mg PO DAILY 08/30/16 08/30/16 History Losartan [Cozaar] 12.5 mg PO BID 08/30/16 08/30/16 History Tapentadol HCl [Nucynta] 50 mg PO Q6HR PRN 08/30/16 08/30/16 History Allergies Allergy/AdvReac Type Severity Reaction Status Date / Time cefuroxime [From Ceftin] Allergy Verified 07/04/16 08:49 ciprofloxacin [From Cipro] Allergy Verified 07/04/16 08:49 codeine Allergy Verified 07/04/16 08:49 ondansetron Allergy Verified 07/04/16 08:49 [From Zofran (as hydrochloride)] pentazocine [From Talwin] Allergy Verified 07/04/16 08:49 [id number] Reductase Allergy Verified 07/04/16 08:49 Inhibitor Sulfa (Sulfonamide Allergy Verified 07/04/16 08:49 Antibiotics) tramadol [From Ultram] Allergy Verified 07/04/16 08:49 antihistamines Allergy Uncoded 07/04/16 08:49 Review of systems: Otherwise unremarkable from a sleep standpoint. Exam (Pulmonay) H&P - Constitutional Vitals: Period Temp Pulse Resp BP Sys/Luna Pulse Ox Last 24 Hr 96.5 F-99.2 F 70-80 16-20 99-128/48-66 92-98 Exam: She is alert and responsive in no acute distress. Pupils equal round reactive to light and accommodation. Extraocular movements intact. Oropharynx with a class II Mallampati exam. Neck is supple without adenopathy or thyromegaly. No supraclavicular adenopathy is noted. Chest with symmetrical breath sounds without focal wheeze, rhonchi, or rales. Cardiac exam reveals a regular rhythm without murmur or gallop. Abdomen soft nontender without palpable hepatosplenomegaly or mass. Extremities are without clubbing, cyanosis, or edema. Neurologically, she is grossly intact. She moves all extremities with good strength. Medical,Surgical,& Family Hx - Medical History Cardio: History of: Cardiac Dysrhythmia (atrial fib), CAD, Hypertension, Pacemaker (march 2016), Cardiovascular Problems (Cardiac ablation x 3, Cardiac conversion x 9--2015) No history of: CHF Neurology: No history of: Seizures HEENT: History of: Eye Problem (glasses) Endocrine: History of: Dyslipidemia No history of: Thyroid Disorder Respiratory: History of: Respiratory Problems (chronic sob with exertion) No history of: Obstructive Sleep Apnea Gastrointestinal: History of: GERD, GI Problems (esophageal spasms) No history of: Hepatitis, Liver Problems Musculoskeletal: History of: Back/Neck Problems (neck surgey on neck-1986) Hematology: History of: Anemia No history of: Blood Transfusion Reaction Other: No history of: Anesthesia Reactions, Cancer - Surgical History Cardiac Surgeries: Sugical HX of: Cardiac Catheterization (x2) Patient Denies: Internal Defibrillator HEENT Surgeries: Surgical HX of: Eye Surgery (cataracts) Patient denies: Tonsilectomy & Adenoidectomy Abdominal Surgeries: Surgical HX of: Appendectomy, Cholecystectomy, Colonoscopy , EGD Reproductive Surgeries: Surgical HX of;: Hysterectomy Patient denies;: Breast Surgery Orthopedic Surgeries: Surgical HX of;: Orthopedic Surgery (broken foot-2016), Total Knee Replacement (bilateral) - Family History Family History: Reports;: Family Cancer (mother-ovarian, sister-breast) - Social History Smoking Status: Never smoker Frequency of Alcohol Use: None Type of Drug Use: None Results - Labs CBC & BMP: 08/31/16 03:08 08/31/16 03:08 Labs: TSH is within normal limits.
--- NOTE | 2016-08-31 14:16 | XRay Report ---
Exam: XR chest 2V Indication: Pulmonary hypertension Shortness of breath Comparison study: 09/24/2011 Findings: Cardiac silhouette is mildly enlarged, similar to prior. Left chest pacemaker device and wire leads are now noted in position. The heart, mediastinum and bony structures are stable from prior. There is improved aeration within the right lung base with sharp costophrenic angle now noted. There is no focal consolidation, pneumothorax or pleural effusion identified. Cholecystectomy clips are noted. Generalized osteopenia is noted with mild multilevel degenerative changes throughout the thoracic spine. Impression: No acute cardiopulmonary process. Improved aeration within the right lung base. Similar cardiomegaly. PROCEDURE INTERPRETED AT [facility] DEPARTMENT OF RADIOLOGY Final Report Signed by: Wali Collazo
[2016-08-31] MEDS: WARFARIN 7.5 MG TABLET PO SCH (17:21)
--- NOTE | 2016-08-31 18:23 | Pulmonology Consult Note ---
History of Present Illness Chief complaint: PHT. SLATER. Atrial fib. History of present illness: Ms. Espino is a 76 year old white female been asked to see concerning pulmonary hypertension. This patient has been admitted with an exacerbation of atrial fib. She was symptomatic. She has had a recent exercise test and did not do very well. She denies some cough, wheeze and hemoptysis. Patient does have a history of esophageal stricture and she has gastroesophageal reflux. She denies aspiration. The patient has been followed at [facility] for pulmonary hypertension since at least 2011.. In July she had a right heart catheterization and her resting pulmonary artery pressures were 38/14. Post exercise the pressures were 42/16. Her wedge pressure appeared to be normal. Her right ventricular pressures were 43/ 1 and right atrial pressures were 13/9. There was no evidence of desaturation at any juncture along the way. Patient said that her pulmonary doctor who is treated her pulmonary hypertension said everything was fine. Patient knew very little about her condition. She says she just took the medicines that they gave her and did not ask questions. She was on Norvasc 5 mg twice a day. She was also on Coumadin for atrial fib. Coumadin is often helpful in pulmonary hypertension. She is not aware of any other medicines have been tried. Patient says she is also had cardiac catheterization for coronary arteries and no blockage was found. Patient has atrial fib. A cardiac pacemaker was placed in March 2016. Patient's biggest complaint is dyspnea on exertion and she is unable to get out and mowed the yard. She also complains of recurrent bilateral lower extremity edema. This is improving on bed rest and teds below the knee hose. The remainder the review of systems is negative. Allergies. See below Home medicines. See below Hospital medicines. See below Past history. Pulmonary hypertension which is been treated at [facility] for the past 4 years. Atrial fib. High blood pressure. Cardiac pacemaker placed March 2016. Cardiac ablation 3. Hyperlipidemia. Esophageal stricture and gastroesophageal reflux disease followed and treated by Dr. Dillan Lowery. Next surgery 1986. Past history of anemia. Surgeries. Cataracts. TNA. Appendectomy. Cholecystectomy. Cardiac catheterization. C scope. E scope. Hysterectomy. Breast surgery. Bilateral total knee replacements. History of surgery on her foot 2015. Social history. Patient never smoked. She does not use alcohol. She is . She does not like the way her mostly art Family history. Her mother had ovarian cancer and a sister had breast cancer. Chest x-ray. My interpretation. Normal. Pulmonary arteries do not appear to be enlarged O2 sats. Patient checks her O2 sats at home and the lowest she ever measures is 95 and usually sats are in the high 90s. Lab. Creatinine is 1.30 BUNs 23. Potassium is at the low range of normal at 3.5. CBC is normal. Natruretic peptide is been done twice in their values of 204 and 239 which are probably related to her pulmonary hypertension. Liver tests are normal. Glucoses are normal. Urine is normal. Thyroid function test is normal. Echocardiogram. 08/30/2016 tricuspid insufficiencies and velocities which suggest a pulmonary artery pressure of 50 mmHg. Normal left ventricle with ejection fraction of 55-60%. Right ventricular enlargement. Echocardiogram. 07/04/2016. Pulmonary artery pressure 40. Ejection fraction was 50-55 mild mitral regurgitation was seen. There was enlargement of the left atrium and right atrium and right ventricle appeared normal in size. Physical exam. Vital signs. See below. Afebrile. Face is symmetrical. Eyes are normal. There is no swelling of the lips or tongue. Neurologic. Cranial nerves are intact. Long track motor functions intact. Sensory exam was not done in gait was not tested Neck. Symmetrical. No meningismus. Thyroid was not palpated Chest. Symmetrical with clear breath sounds and no chest wall tenderness. Heart. 85 bpm. Irregular. No gallop. Abdomen. Nontender. Positive bowel sounds Lower extremities. Edema is close to resolution. Lymphatics. No submandibular cervical supraclavicular or epitrochlear adenopathy Skin. Face and hands show no cancerous or infectious lesions. Venous stasis changes over the lower extremities. The remainder the physical exam is negative. Impression. 1. Pulmonary hypertension which is being treated at [facility]. July 2016 right heart cath was felt to be acceptable. Recurrent right-sided edema is a little bit worrisome especially in the face of an enlarged right ventricle by echocardiographic criteria 2. Atrial fib. Poor control 3. Dyspnea on exertion. This is most likely related to atrial fib and possibly secondary to mild pulmonary hypertension. 4. Chronic Coumadin therapy Plan. 1. Patient has had recurrent lower extremity edema. She has had bilateral knee replacements and previous ankle surgery. She has had several cardiac catheterizations. She has been on anticoagulation but do not just a chance that she could be producing clots in her venous system will check Doppler venograms. 2. Probably should defer to [facility] since they have been treating her pulmonary hypertension for at least 5 years. If she has no obstructive coronary artery disease and she has no evidence of hypotension Revatio or similar medicine would be a consideration. Home Medications Medication Instructions Recorded Confirmed Type Aspirin EC Tab 81 mg PO DAILY 07/04/16 08/30/16 History Cholecalciferol (Vitamin D3) 1,000 unit PO DAILY 07/04/16 08/30/16 History [Vitamin D3] Estradiol Tab [Estrace Tab] 0.5 mg PO QOTHER DAY 07/04/16 08/30/16 History Magnesium Oxide [Magox 400] 400 mg PO BID 07/04/16 08/30/16 History Metoprolol Tartrate Tab [Lopressor 50 mg PO BID 07/04/16 08/30/16 History Tab] Pantoprazole Tab [Protonix Tab] 40 mg PO BEDTIME 07/04/16 08/30/16 History Warfarin [Coumadin] 5 mg PO MOWEFR 07/04/16 08/30/16 History Warfarin [Coumadin] 7.5 mg PO SUTUTHSA 07/04/16 08/30/16 History amLODIPine [Norvasc] 5 mg PO BID 07/04/16 08/30/16 History ALPRAZolam [Alprazolam] 1 mg PO BEDTIME 08/30/16 08/30/16 History Furosemide [Furosemide] 40 mg PO DAILY 08/30/16 08/30/16 History Losartan [Cozaar] 12.5 mg PO BID 08/30/16 08/30/16 History Tapentadol HCl [Nucynta] 50 mg PO Q6HR PRN 08/30/16 08/30/16 History Allergies Allergy/AdvReac Type Severity Reaction Status Date / Time cefuroxime [From Ceftin] Allergy Verified 07/04/16 08:49 ciprofloxacin [From Cipro] Allergy Verified 07/04/16 08:49 codeine Allergy Verified 07/04/16 08:49 ondansetron Allergy Verified 07/04/16 08:49 [From Zofran (as hydrochloride)] pentazocine [From Talwin] Allergy Verified 07/04/16 08:49 Cimqpbv-Dsc-Hgm Reductase Allergy Verified 07/04/16 08:49 Inhibitor Sulfa (Sulfonamide Allergy Verified 07/04/16 08:49 Antibiotics) tramadol [From Ultram] Allergy Verified 07/04/16 08:49 antihistamines Allergy Uncoded 07/04/16 08:49 Exam (Pulmonay) H&P - Constitutional Vitals: Period Temp Pulse Resp BP Sys/Luna Pulse Ox Last 24 Hr 96.5 F-99.2 F 70-71 16-20 96-128/48-66 92-98 Medical,Surgical,& Family Hx - Medical History Cardio: History of: Cardiac Dysrhythmia (atrial fib), CAD, Hypertension, Pacemaker (march 2016), Cardiovascular Problems (Cardiac ablation x 3, Cardiac conversion x 9--2015) No history of: CHF Neurology: No history of: Seizures HEENT: History of: Eye Problem (glasses) Endocrine: History of: Dyslipidemia No history of: Thyroid Disorder Respiratory: History of: Respiratory Problems (chronic sob with exertion) No history of: Obstructive Sleep Apnea Gastrointestinal: History of: GERD, GI Problems (esophageal spasms) No history of: Hepatitis, Liver Problems Musculoskeletal: History of: Back/Neck Problems (neck surgey on neck-1986) Hematology: History of: Anemia No history of: Blood Transfusion Reaction Other: No history of: Anesthesia Reactions, Cancer - Surgical History Cardiac Surgeries: Sugical HX of: Cardiac Catheterization (x2) Patient Denies: Internal Defibrillator HEENT Surgeries: Surgical HX of: Eye Surgery (cataracts) Patient denies: Tonsilectomy & Adenoidectomy Abdominal Surgeries: Surgical HX of: Appendectomy, Cholecystectomy, Colonoscopy , EGD Reproductive Surgeries: Surgical HX of;: Hysterectomy Patient denies;: Breast Surgery Orthopedic Surgeries: Surgical HX of;: Orthopedic Surgery (broken foot-2015), Total Knee Replacement (bilateral) - Family History Family History: Reports;: Family Cancer (mother-ovarian, sister-breast) - Social History Smoking Status: Never smoker Frequency of Alcohol Use: None Type of Drug Use: None Results - Labs CBC & BMP: 08/31/16 03:08 08/31/16 03:08
--- NOTE | 2016-08-31 19:27 | Ultrasound Report ---
Bilateral lower extremity venous Doppler with mandujano scale, Spectral Doppler and color-flow analysis performed and interpreted. Indication: Edema Scanning over both common femoral veins, superficial femoral veins, greater saphenous veins and popliteal veins demonstrates normal compressibility, color flow, and augmentation. Impression: No evidence of DVT seen in either lower extremity. PROCEDURE INTERPRETED AT [facility] DEPARTMENT OF RADIOLOGY Final Report Signed by: Dr. Ami Sim
[2016-08-31] MEDS: SERTRALINE 25 MG TABLET PO SCH (21:39)
[2016-09-01] MEDS ORDERED: PROMETHAZINE INJ 12.5 MG in SODIUM CHLORIDE 0.9% 50 ML IV PRN (03:55)
[2016-09-01 05:41] LABS: Basophils % 0.7 % (0.0-0.8); Eosinophils % 0.7 % (0.00-10.9); Hematocrit 37.8 VOL% (35.7-47.0); Hemoglobin 12.7 GM/DL (12.0-16.0); Immature Granulocytes % 0.2 %; Immature Granulocytes Absolute 0.01 #; Lymphocytes # 1.9 10*3/uL (1.4-4.0); Lymphocytes % 33.6 % (21.3-54.2); Mean Corpuscular HGB Conc 33.6 GM/DL (32-36); Mean Corpuscular Hemoglobin 28 PG (27-34); Mean Corpuscular Volume 84.2 FL (87-102); Mean Platelet Volume 12.6 FL (9.6-12.0); Monocytes # 0.6 10*3/uL (0.11-0.8); Monocytes % 10.3 % (1.7-12.7); Neutrophils % 54.5 % (38.7-73.9); Platelet Count 198 T/CUMM (130-400); Red Blood Count 4.49 MC/CUMM (3.8-5.5); Red Cell Distribution Width 15.3 % (9.3-17.3); White Blood Count 5.5 T/CUMM (4-12)
[2016-09-01 06:08] LABS: Albumin 3.6 G/DL (3.4-5.0); Bilirubin,Total 1.7 MG/DL (0.2-1.0); Calcium 9.4 MG/DL (8.5-10.1); Osmolality,Calculated 280.7 MOS/KG (273-304); Potassium 3.4 MMOL/L (3.5-5.1); Total Protein 7.1 G/DL (6.4-8.3)
--- NOTE | 2016-09-01 08:03 | Electrophysiology Progress Not ---
Assessment and Plan (1) Pulmonary hypertension Status: Chronic Assessment and plan: 76-year-old female, with worsening shortness of breath, since AV node ablation, dual-chamber pacemaker implantation, now in persistent atrial fibrillation, moderate pulmonary hypertension, hypertension, hyperlipidemia, volume overload. Although most patients do feel better with proper rate control after AV node ablation/pacemaker implantation, in this case it seems to have exacerbated her underlying diastolic dysfunction. She is not a candidate for CERTIFIED SOLID WASTE FACILITY OPERATOR, ejection fraction is preserved. There are data that CERTIFIED SOLID WASTE FACILITY OPERATOR also improves diastolic function , but it is not an established indication for CERTIFIED SOLID WASTE FACILITY OPERATOR yet. -Appreciate pulmonary and sleep input. The pulmonary hypertension does not appear to be severe at this time, sleep study pending. -Nausea, elevated bilirubin. This is a new finding, may not be related to cardiac issues. Reglan prn -Pacemaker settings were adjusted. Due to diastolic dysfunction, the base rate was decreased to 60, upper sensor rate 110, with blunted heart rate response. If this does not improve her symptoms, we may consider PVI for rhythm control for the atrial fibrillation -FU with EP in 4 weeks, once pulm/sleep workup complete -Cont anticoagulation Current Visit: No (2) Chronic anticoagulation Status: Chronic Current Visit: No (3) Diverticulosis Status: Chronic Current Visit: No (4) Hypertension Status: Chronic Current Visit: No (5) Hyperlipidemia Status: Chronic Current Visit: No (6) Volume overload Status: Acute Current Visit: Yes (7) History of atrioventricular winston ablation Status: Chronic Current Visit: Yes (8) IBS (irritable bowel syndrome) Status: Chronic Current Visit: Yes Electrophysiology Subjective Interval history: She has N and dry heaves. 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 Exam - Constitutional Vitals: Period Temp Pulse Resp BP Sys/Luna Pulse Ox Last 24 Hr 96.8 F-97.7 F 63-87 16-20 96-128/52-66 91-97 General appearance: mild distress, over weight - Head Head exam: Present: normal inspection, normocephalic - Eye Eye exam: Absent: conjunctival injection, periorbital swelling, scleral icterus Pupils: Present: normal accommodation - ENT ENT exam: Present: normal external ear exam - Neck Neck exam: Present: normal inspection - Respiratory Respiratory exam: Present: clear to auscultation bilaterally. Absent: decreased breath sounds - Cardiovascular Cardiovascular exam: Present: regular rate and rhythm, systolic murmur. Absent : JVD - GI/Abdominal GI/Abdominal exam: Present: normal bowel sounds. Absent: distended - Extremities Exam Extremities exam: Present: normal inspection, normal capillary refill. Absent: edema - Back Exam Back exam: Present: normal inspection - Neurological Exam Neurological exam: Present: alert, oriented X3 - Psychiatric Psychiatric exam: Present: normal affect, normal mood - Skin Skin exam: Present: normal color, warm. Absent: cyanosis Results - Labs CBC & BMP: 09/01/16 04:53 09/01/16 04:53 Lab Results: I have reviewed the past 24 hour labs
[2016-09-01] MEDS: METOCLOPRAMIDE 10 MG/2 ML VIAL IV PRN (09:24)
[2016-09-01] MEDS: MAGNESIUM OXIDE 400 MG TABLET PO SCH ×3 (10:28→21:34)
[2016-09-01] MEDS: LOSARTAN 25 MG TABLET PO SCH ×3 (10:28→21:35)
[2016-09-01] MEDS: METOPROLOL TARTRATE 50 MG TABLET PO SCH ×3 (10:28→21:34)
[2016-09-01] MEDS: ASPIRIN EC 81 MG TABLET PO SCH ×2 (10:28→14:41)
[2016-09-01] MEDS: FUROSEMIDE 40 MG TABLET PO SCH ×2 (10:28→14:41)
[2016-09-01] MEDS: amLODIPine 5 MG TABLET PO SCH ×3 (10:29→21:35)
[2016-09-01] MEDS: PANTOPRAZOLE 40 MG TABLET PO SCH ×2 (10:29→14:41)
[2016-09-01] MEDS: CHOLECALCIFEROL 1,000 UNIT TABLET PO SCH ×2 (10:29→14:42)
--- NOTE | 2016-09-01 11:53 | Pulmonology Progress Note ---
Pulmonary - PN: Subj Interval history: Chuck Washington, [facility] acting as scribe for Dr. Paul Richardson Mrs. Gutiérrez is a 76 year old white female who we saw in initial pulmonary consultation on 08/31/16. At that time, our impressions were: 1. Pulmonary hypertension which is being treated at [facility]. July 2016 right heart cath was felt to be acceptable. Recurrent right-sided edema is a little bit worrisome especially in the face of an enlarged right ventricle by echocardiographic criteria 2. Atrial fib. Poor control 3. Dyspnea on exertion. This is most likely related to atrial fib and possibly secondary to mild pulmonary hypertension. 4. Chronic Coumadin therapy 09/01/2016. Will walk in the room, the patient was leaned over the bed with her head toward a garbage can. She is extremely nauseated this morning. She is unsure why. She thinks she may have eaten some bad food, but she cannot be sure. She states that she was given an antinausea medication this morning. On review of her records this was Phenergan IV. Dr. Rodrigues has also ordered as needed Reglan for nausea. From a pulmonary standpoint, she seems to be doing reasonably well. Doppler venograms showed no evidence of DVT in either lower extremity. Her pacemaker settings have been adjusted. Her HST is pending. Medications have been reviewed. We made no changes today. Labs been reviewed. White count is 5500 with 54.5% segs; H&H 12.7/37.8; platelet count 198,000; creatinine 1.40, BUN 27, sodium 138, potassium 3.4; calcium 9.4, albumin 3.6, total protein 7.1; liver function tests are normal with the exception of a minimally elevated alkaline phosphatase of 136; total bilirubin elevated at 1.70; cardiac enzymes are negative Exam (Progress Note) - Constitutional Vitals: Period Temp Pulse Resp BP Sys/Luna Pulse Ox Last 24 Hr 96.8 F-97.8 F 63-87 16-20 96-130/52-66 91-97 Exam: Chest is clear Heart is irregular but no definite gallop Abdomen with mild right upper quadrant tenderness with palpation; no rebounding or guarding; bowel sounds are hyperactive 4 Extremities with nothing to suggest acute deep venous thrombophlebitis Psychiatric oriented 3 Neurologic long-term motor function is intact Plan: Continue present treatment. Dr. Rodrigues has adjusted nausea medicines. We will obtain amylase, lipase, and GB US. Repeat labs in the morning. See orders. Results - Labs CBC & BMP: 09/01/16 04:53 09/01/16 04:53
--- NOTE | 2016-09-01 12:04 | Cardiology Progress Note ---
<Bianca Davis E - Last Filed: 09/01/16 12:01> Assessment and Plan - Time spent with patient Time spent with patient: Less than 30 minutes (1) Volume overload Status: Acute Assessment and plan: See plan of care listed below. Current Visit: Yes (2) Paroxysmal atrial fibrillation Status: Chronic Assessment and plan: See plan of care listed below. Current Visit: No (3) Chronic anticoagulation Status: Chronic Assessment and plan: See plan of care listed below. Current Visit: No (4) History of atrioventricular winston ablation Status: Chronic Assessment and plan: See plan of care listed below. Current Visit: Yes (5) Status post placement of cardiac pacemaker Status: Chronic Assessment and plan: See plan of care listed below. Current Visit: No (6) Hypertension Status: Chronic Assessment and plan: See plan of care listed below. Current Visit: No (7) Hyperlipidemia Status: Chronic Assessment and plan: See plan of care listed below. Current Visit: No (8) IBS (irritable bowel syndrome) Status: Chronic Assessment and plan: See plan of care listed below. Current Visit: Yes (9) GERD (gastroesophageal reflux disease) Status: Acute Assessment and plan: See plan of care listed below. Current Visit: Yes (10) Diverticulosis Status: Chronic Assessment and plan: See plan of care listed below. Current Visit: No Cardiology - PN: Subj Interval history: INSEMINATION WORKER: DR. AVENDAÑO PCP: DR. JULIA GREEN SUMMARY: Ms. Espino is a 76 year old female with history of paroxysmal atrial fibrillation, pulmonary hypertension, diverticulosis, GERD, esophageal stricture, hypertension, hyperlipidemia who was transferred to our facility from [facility] for further evaluation of CHF. She has had worsening SOB since her AV node ablation and dual-chamber pacemaker implantation. She is now in persistent atrial fibrillation with volume overload. Although most patients do feel better with proper rate control after AV node ablation/pacemaker implantation, in this case it seems to have exacerbated her underlying diastolic dysfunction. She is not a candidate for SUPERVISOR BLOOMING MILL, ejection fraction is preserved. We have asked pulmonology and sleep medicine to evaluate her for secondary causes for her pulmonary hypertension and shortness of breath. We appreciate their input. SEPTEMBER 01, 2016 UPDATE: She is being followed by electrophysiology, pulmonology, and sleep medicine. Her pacemaker was interrogated yesterday and settings have been adjusted. Due to diastolic dysfunction, the base rate was decreased to 60, upper sensor rate 110, with blunted heart rate response. If this does not improve her symptoms, we may consider PVI for rhythm control for the atrial fibrillation. She was started on Zoloft last night and reports she woke up around 3:00 this morning with nausea and dry heaves. She is still feeling poorly upon exam today. We will continue to monitor her. ASSESSMENT/PLAN: 1. PULMONARY HYPERTENSION - We have asked pulmonology and sleep medicine to see her in evaluation for secondary causes of pulmonary hypertension. 2. VOLUME OVERLOAD - Will continue diuresis with IV Lasix. Monitor BMP, BNP. 3. PAROXYSMAL ATRIAL FIBRILLATION - Currently in a ventricular paced rhythm. 3. CHRONIC ANTICOAGULATION - Continue coumadin. Will monitor PT/INR. 4. S/P AV WINSTON ABLATION - Done on 04/12/16. 5. S/P DUAL CHAMBER PACEMAKER IMPLANTATION - Done on 04/12/16 at [facility]. Patient has a [employer] device. 6. HYPERTENSION - Currently well controlled. Will continue to monitor and adjust accordingly. Continue beta patrizia, ARB, CCB. 7. HYPERLIPIDEMIA - Lipid panel reveals triglycerides of 198, cholesterol 241, LDL 156, HDL 53. She is not currently on statin therapy as she has an allergy to these. We will start her on Zetia - will start this tomorrow as she remains nauseated today. 8. IBS 9. GERD 10. DIVERTICULOSIS 11. ANXIETY - This seems to be playing a role in her symptoms. She reports she has not felt well since having her procedure in March and has had frequent anxiety over her continued illness. We have started her on Zoloft. Exam (Progress Note) - Constitutional Vitals: Period Temp Pulse Resp BP Sys/Luna Pulse Ox Last 24 Hr 96.8 F-97.8 F 63-87 16-20 96-130/52-63 91-97 Exam: General: Present: Appears Well, No Apparent Distress. Pleasant and cooperative. Appears comfortable. HEENT: Present: PERRL, Normocephaly, atraumatic. Mucus Membranes Moist. No jaundice noted. Conjunctiva moist and clear, sclerae anicteric Neck: Present: Supple Neck, Midline Trachea, No Masses, No Bruit, No tenderness Cardiac: Present: Regular Rate and Rhythm (v-paced), No Murmur Lungs: Present: Clear to auscultation bilaterally, no wheeze, rhonchi, rales. Neuro: Present: Awake, alert, and oriented x3. Moves all extremities well without hemiparesis or paralysis. Grossly Intact. Absent: Resting Tremor, Essential Tremor Abdomen: Present: Soft, Active Bowel Sounds, No Masses, Non-Tender, nondistended. No abdominal bruit or thrill noted. Skin: Present: Clear. Absent: Rash, No skin breakdown. Back: Normal inspection, no vertebral tenderness. Musculoskeletal: Present: No Fluid Collection, No Pain, Normal Range of Motion Extremities: Present: Normal Gait, No Clubbing, No Cyanosis, Upper Extr. Pulses 2+, Lower Extr. Pulses 2+, No edema. Capillary refill less than 3 seconds. Result/EKG - Labs CBC & BMP: 09/01/16 04:53 09/01/16 04:53 Lab Results: I have reviewed the past 24 hour labs Labs: Laboratory Results - last 24 hr 09/01/16 09/01/16 04:53 04:53 WBC 5.5 RBC 4.49 Hgb 12.7 Hct 37.8 MCV 84.2 L MCH 28 MCHC 33.6 RDW 15.3 Plt Count 198 MPV 12.6 H Neut % (Auto) 54.5 Lymph % (Auto) 33.6 Sebastian % (Auto) 10.3 Eos % (Auto) 0.7 Baso % (Auto) 0.7 Neut # (Auto) 3.0 Lymph # (Auto) 1.9 Sebastian # (Auto) 0.6 Eos # (Auto) 0.0 Baso # (Auto) 0.0 Immature Gran % 0.2 Nucleated RBC % 0.0 Immature Gran # 0.01 Nucleated RBCs # 0.00 Sodium 138 Potassium 3.4 L Chloride 98 Carbon Dioxide 30 Anion Gap 13.4 BUN 27 H Creatinine 1.40 H GFR Calculation 37 BUN/Creatinine Ratio 19.00 Glucose 111 H Calculated Osmolality 280.7 Calcium 9.4 Total Bilirubin 1.70 H AST 27 ALT 32 Alkaline Phosphatase 136 H Total Protein 7.1 Albumin 3.6 Globulin 3.5 Albumin/Globulin Ratio 1.0 L - EKG EKG results: interpreted by me (v-pacing) <Luis Avendaño - Last Filed: 09/01/16 12:27> Cardiology - PN: Subj Interval history: She complains of nausea but no vomiting. She has had some abdominal fullness and tightness in her epigastrium does not sound cardiac in origin. We started her on Zoloft last night and we will continue it and see how she tolerates it. I have encouraged her to get up and move about. I appreciate Dr. López's assistance. I have discussed in detail the particulars of this case and I have examined the patient and reviewed the patient's chart both current and old. I was directly involved in the patient's evaluation and management and I completely agree with Bianca Davis NP regarding this patient's evaluation and treatment plan. Exam (Progress Note) - Constitutional Vitals: Period Temp Pulse Resp BP Sys/Luna Pulse Ox Last 24 Hr 96.8 F-97.8 F 60-87 16-20 96-130/52-63 91-97 Result/EKG - Labs CBC & BMP: 09/01/16 04:53 09/01/16 04:53 Labs: Laboratory Results - last 24 hr 09/01/16 09/01/16 04:53 04:53 WBC 5.5 RBC 4.49 Hgb 12.7 Hct 37.8 MCV 84.2 L MCH 28 MCHC 33.6 RDW 15.3 Plt Count 198 MPV 12.6 H Neut % (Auto) 54.5 Lymph % (Auto) 33.6 Sebastian % (Auto) 10.3 Eos % (Auto) 0.7 Baso % (Auto) 0.7 Neut # (Auto) 3.0 Lymph # (Auto) 1.9 Sebastian # (Auto) 0.6 Eos # (Auto) 0.0 Baso # (Auto) 0.0 Immature Gran % 0.2 Nucleated RBC % 0.0 Immature Gran # 0.01 Nucleated RBCs # 0.00 Sodium 138 Potassium 3.4 L Chloride 98 Carbon Dioxide 30 Anion Gap 13.4 BUN 27 H Creatinine 1.40 H GFR Calculation 37 BUN/Creatinine Ratio 19.00 Glucose 111 H Calculated Osmolality 280.7 Calcium 9.4 Total Bilirubin 1.70 H AST 27 ALT 32 Alkaline Phosphatase 136 H Total Protein 7.1 Albumin 3.6 Globulin 3.5 Albumin/Globulin Ratio 1.0 L
--- NOTE | 2016-09-01 13:32 | Sleep Medicine Progress Note ---
Assessment and Plan (1) Unspecified sleep apnea Status: Acute Assessment and plan: This patient does have obstructive sleep apnea by HST evaluation and will be initiated on auto titration CPAP over the weekend. Current Visit: Yes (2) Paroxysmal atrial fibrillation Status: Chronic Current Visit: No (3) Pulmonary hypertension Status: Chronic Current Visit: No Sleep Medicine Subjective Interval history: Patient did have mild KARLO with diagnostic AHI of about 9. She had O2 desats into the 70s and had 10 minutes of sleep with O2 sats of less than 85%. With these findings, we will go ahead and initiate auto titration CPAP over the weekend and follow-up her response. These findings were discussed with the by phone. Exam (Progress Note) - Constitutional Vitals: Period Temp Pulse Resp BP Sys/Luna Pulse Ox Last 24 Hr 96.8 F-97.8 F 60-87 16-20 96-130/52-63 91-97 Results - Labs CBC & BMP: 09/01/16 04:53 09/01/16 04:53 Lab Results: I have reviewed the past 24 hour labs
[2016-09-01] MEDS: WARFARIN 7.5 MG TABLET PO SCH (18:44)
[2016-09-01] MEDS: SERTRALINE 25 MG TABLET PO SCH (21:34)
[2016-09-02 05:54] LABS: Basophils % 0.4 % (0.0-0.8); Eosinophils % 0.6 % (0.00-10.9); Hematocrit 36.7 VOL% (35.7-47.0); Hemoglobin 12.3 GM/DL (12.0-16.0); Immature Granulocytes % 0.4 %; Immature Granulocytes Absolute 0.02 #; Lymphocytes # 1.7 10*3/uL (1.4-4.0); Lymphocytes % 31.9 % (21.3-54.2); Mean Corpuscular HGB Conc 33.5 GM/DL (32-36); Mean Corpuscular Hemoglobin 28 PG (27-34); Mean Corpuscular Volume 84.2 FL (87-102); Monocytes # 0.6 10*3/uL (0.11-0.8); Monocytes % 10.5 % (1.7-12.7); Neutrophils % 56.2 % (38.7-73.9); Platelet Count 188 T/CUMM (130-400); Red Blood Count 4.36 MC/CUMM (3.8-5.5); Red Cell Distribution Width 15.3 % (9.3-17.3); White Blood Count 5.3 T/CUMM (4-12)
[2016-09-02 06:33] LABS: Albumin 3.5 G/DL (3.4-5.0); Bilirubin,Total 1.5 MG/DL (0.2-1.0); Calcium 9.5 MG/DL (8.5-10.1); Osmolality,Calculated 283.5 MOS/KG (273-304); Potassium 3.5 MMOL/L (3.5-5.1); Total Protein 6.6 G/DL (6.4-8.3)
--- NOTE | 2016-09-02 06:58 | Pulmonology Progress Note ---
Pulmonary - PN: Subj Interval history: This 76-year-old lady has a history of pulmonary hypertension and has been followed at [facility] for 5 years. Apparently is under pretty good control. She has had some nausea. She has symptoms of obstructive sleep apnea and is being tried on CPAP at night. Dr. Florez is seeing her. Her nausea is better today. Exam (Progress Note) - Constitutional Vitals: Period Temp Pulse Resp BP Sys/Luna Pulse Ox Last 24 Hr 96.5 F-98.2 F 60-86 16-18 107-133/53-75 94-97 Exam: Patient is alert and oriented. Vital signs are normal. Pupils react to light. Throat is clear. Neck supple no bruits. Chest clear equal breath sounds. Heart normal rate and rhythm no murmurs. Abdomen soft nontender bowel sounds present. Extremities no clubbing cyanosis or edema. Calves nontender. Results - Labs CBC & BMP: 09/02/16 05:40 09/02/16 05:40 Lab Results: I have reviewed the past 24 hour labs Assessment and Plan (1) Pulmonary hypertension Status: Chronic Assessment and plan: Pulmonary artery pressure apparently was 38 and went to 42 with exercise with a right heart cath done a few weeks ago. This is stable on current medications. She is on amlodipine. Also on chronic anticoagulants. Current Visit: No (2) Unspecified sleep apnea Status: Acute Assessment and plan: Started last night on CPAP per Dr. Florez. Current Visit: Yes
--- NOTE | 2016-09-02 07:45 | Cardiology Progress Note ---
Assessment and Plan (1) SLATER (dyspnea on exertion) Status: Acute Current Visit: Yes (2) Chronic nausea Status: Acute Current Visit: Yes (3) History of atrioventricular winston ablation Status: Chronic Assessment and plan: She has responded poorly to her AV node ablation. She is disappointed that her heart rate is fixed and we are adjusting it to the point that perhaps she can get some improvement with rate response. I appreciate Dr. López's input. Current Visit: Yes (4) Hypertension Status: Chronic Current Visit: No (5) Paroxysmal atrial fibrillation Status: Chronic Current Visit: No (6) Pulmonary hypertension Status: Chronic Current Visit: No Cardiology - PN: Subj Interval history: Patient is gaining some strength and feels a little better. We will increase her physical activity today and continue observing her rhythm. She is sleeping well. She was given CPAP for what I am assuming his obstructive sleep apnea and our plan is to have her increase her activities through the day today and then discharge her tomorrow. Exam (Progress Note) - Constitutional Vitals: Period Temp Pulse Resp BP Sys/Luna Pulse Ox Last 24 Hr 96.5 F-98.2 F 60-86 16-18 107-133/53-75 94-97 Exam: General:no acute distress. alert and oriented, mood and affect are normal HEENT: no new lesions, sclerae are clear, mouth and pharynx benign Neck: supple, trachea midline, no JVD noted Lungs: no rales ronchi or wheeze is noted. pt comfortable without accesory muscle use to assist with breathing CV: RRR no murmur rub or gallop is noted. Abd: soft and nontender, BSNA, no masses. Ext: no cyanosis, clubbing or edema Neuro: grossly intact without focal neurologic deficit. Result/EKG - Labs CBC & BMP: 09/02/16 05:40 09/02/16 05:40 Labs: Laboratory Results - last 24 hr 09/01/16 09/02/16 09/02/16 04:50 05:40 05:40 WBC 5.3 RBC 4.36 Hgb 12.3 Hct 36.7 MCV 84.2 L MCH 28 MCHC 33.5 RDW 15.3 Plt Count 188 MPV 12.0 Neut % (Auto) 56.2 Lymph % (Auto) 31.9 [place] % (Auto) 10.5 Eos % (Auto) 0.6 Baso % (Auto) 0.4 Neut # (Auto) 3.0 Lymph # (Auto) 1.7 [place] # (Auto) 0.6 Eos # (Auto) 0.0 Baso # (Auto) 0.0 Immature Gran % 0.4 Nucleated RBC % 0.0 Immature Gran # 0.02 Nucleated RBCs # 0.00 Sodium 139 Potassium 3.5 Chloride 101 Carbon Dioxide 31 Anion Gap 10.5 BUN 31 H Creatinine 1.30 H GFR Calculation 40 BUN/Creatinine Ratio 23.00 H Glucose 102 Calculated Osmolality 283.5 Calcium 9.5 Total Bilirubin 1.50 H AST 25 ALT 30 Alkaline Phosphatase 127 H Total Protein 6.6 Albumin 3.5 Globulin 3.1 Albumin/Globulin Ratio 1.1 Amylase 14 L Lipase 85.0
--- NOTE | 2016-09-02 08:36 | Electrophysiology Progress Not ---
Assessment and Plan (1) Pulmonary hypertension Status: Chronic Assessment and plan: 76-year-old female, with worsening shortness of breath, since AV node ablation, dual-chamber pacemaker implantation, now in persistent atrial fibrillation, moderate pulmonary hypertension, hypertension, hyperlipidemia, volume overload. Although most patients do feel better with proper rate control after AV node ablation/pacemaker implantation, in this case it seems to have exacerbated her underlying diastolic dysfunction. She is not a candidate for EMERGENCY VEHICLE DISPATCHER, ejection fraction is preserved. There are data that EMERGENCY VEHICLE DISPATCHER also improves diastolic function , but it is not an established indication for EMERGENCY VEHICLE DISPATCHER yet. -Appreciate pulmonary and sleep input. The pulmonary hypertension does not appear to be severe at this time, sleep study pending. -Nausea resolved. -Recommend follow-up with EP in 4 weeks, once pulm/sleep workup complete -Cont anticoagulation -I suspect her symptoms are mostly due to diastolic dysfunction, which was exacerbated by AV node ablation, paced rhythm, and leaving her in persistent atrial fibrillation. If medical management fails to improve her symptoms, a PVI may be considered. Current Visit: No (2) Chronic anticoagulation Status: Chronic Current Visit: No (3) Diverticulosis Status: Chronic Current Visit: No (4) Hypertension Status: Chronic Current Visit: No (5) Hyperlipidemia Status: Chronic Current Visit: No (6) Volume overload Status: Acute Current Visit: Yes (7) History of atrioventricular winston ablation Status: Chronic Current Visit: Yes (8) IBS (irritable bowel syndrome) Status: Chronic Current Visit: Yes Electrophysiology Subjective Interval history: She is feeling better, the nausea resolved. Heart rate, blood pressure is well controlled. She is in A. fib. V paced. Exam - Constitutional Vitals: Period Temp Pulse Resp BP Sys/Luna Pulse Ox Last 24 Hr 96.5 F-98.2 F 60-86 16-18 107-133/53-75 94-97 General appearance: no acute distress, over weight - Head Head exam: Present: normal inspection. Absent: normocephalic, contusion - Eye Eye exam: Absent: conjunctival injection Pupils: Absent: dilated, irregular - ENT ENT exam: Present: normal external ear exam - Neck Neck exam: Present: normal inspection - Respiratory Respiratory exam: Present: clear to auscultation bilaterally. Absent: chest wall tenderness - Cardiovascular Cardiovascular exam: Present: regular rate and rhythm, systolic murmur - GI/Abdominal GI/Abdominal exam: Present: normal bowel sounds. Absent: distended - Extremities Exam Extremities exam: Present: normal inspection, normal capillary refill. Absent: edema - Back Exam Back exam: Present: normal inspection - Neurological Exam Neurological exam: Present: alert, oriented X3 - Psychiatric Psychiatric exam: Present: normal affect, normal mood - Skin Skin exam: Present: normal color, warm. Absent: cyanosis Results - Labs CBC & BMP: 09/02/16 05:40 09/02/16 05:40 Lab Results: I have reviewed the past 24 hour labs Specialty Discharge - Follow Up or Referrals - Speciality Discharge Instructions Cardiology Instructions: FU with EPdr. Rodrigues in 4 weeks
[2016-09-02] MEDS: CHOLECALCIFEROL 1,000 UNIT TABLET PO SCH (08:39)
[2016-09-02] MEDS: MAGNESIUM OXIDE 400 MG TABLET PO SCH ×2 (08:39→21:20)
[2016-09-02] MEDS: ASPIRIN EC 81 MG TABLET PO SCH (08:39)
[2016-09-02] MEDS: FUROSEMIDE 40 MG TABLET PO SCH (08:40)
[2016-09-02] MEDS: EZETIMIBE 10 MG TABLET PO SCH (08:40)
[2016-09-02] MEDS: PANTOPRAZOLE 40 MG TABLET PO SCH (08:41)
[2016-09-02] MEDS: amLODIPine 5 MG TABLET PO SCH ×2 (08:41→21:20)
[2016-09-02] MEDS: LOSARTAN 25 MG TABLET PO SCH ×2 (08:42→21:21)
[2016-09-02] MEDS: METOPROLOL TARTRATE 50 MG TABLET PO SCH ×2 (08:42→21:20)
[2016-09-02] MEDS: WARFARIN 7.5 MG TABLET PO SCH (17:28)
[2016-09-02] MEDS: SERTRALINE 25 MG TABLET PO SCH (21:20)
--- NOTE | 2016-09-03 08:23 | Pulmonology Progress Note ---
Pulmonary - PN: Subj Interval history: This 76-year-old lady has a history of pulmonary hypertension and has been followed at [facility] for 5 years. Apparently is under pretty good control. She has had some nausea. She has symptoms of obstructive sleep apnea and is being tried on CPAP at night. Dr. Florez is seeing her. Her nausea is better today. 09/03/2016 nausea is much better today. No new complaints. Exam (Progress Note) - Constitutional Vitals: Period Temp Pulse Resp BP Sys/Luna Pulse Ox Last 24 Hr 96.0 F-97.8 F 59-83 16-18 109-122/50-62 95-99 Exam: Patient is alert and oriented. Vital signs are normal. Pupils react to light. Throat is clear. Neck supple no bruits. Chest clear equal breath sounds. Heart normal rate and rhythm no murmurs. Abdomen soft nontender bowel sounds present. Extremities no clubbing cyanosis or edema. Calves nontender. Little change from yesterday. Results - Labs CBC & BMP: 09/02/16 05:40 09/02/16 05:40 Lab Results: I have reviewed the past 24 hour labs Assessment and Plan (1) Pulmonary hypertension Status: Chronic Assessment and plan: Pulmonary artery pressure apparently was 38 and went to 42 with exercise with a right heart cath done a few weeks ago. This is stable on current medications. She is on amlodipine. Also on chronic anticoagulants. 09/03/2016 no changes in treatment here. Current Visit: No (2) Unspecified sleep apnea Status: Acute Assessment and plan: Started last night on CPAP per Dr. Florez. 09/03/2016 tolerating CPAP. Current Visit: Yes
--- NOTE | 2016-09-03 08:42 | Cardiology Progress Note ---
Assessment and Plan (1) SLATER (dyspnea on exertion) Status: Acute Current Visit: Yes (2) Chronic nausea Status: Acute Assessment and plan: I think that this is medication related and we are adjusting her meds. Current Visit: Yes (3) History of atrioventricular winston ablation Status: Chronic Assessment and plan: She has responded poorly to her AV node ablation. She is disappointed that her heart rate is fixed and we are adjusting it to the point that perhaps she can get some improvement with rate response. I appreciate Dr. López's input. She may benefit from PVI because she can still feel her fibrillating atria. She is very symptomatic related to it. Current Visit: Yes (4) Hypertension Status: Chronic Current Visit: No (5) Paroxysmal atrial fibrillation Status: Chronic Current Visit: No (6) Pulmonary hypertension Status: Chronic Current Visit: No Cardiology - PN: Subj Interval history: Patient continues with awareness of her atrial fibrillation even after AV node ablation. She may well come to pulmonary vein isolation. She is depressed and anxious and nauseated on Zoloft and when to switch her over to Lexapro and see whether that is more tolerable. She denies any history related to significant shortness of breath orthopnea PND or edema. She has had no other real specific complaints. I have encouraged ambulation. She likely can be discharged in the morning. She may benefit from tapering and discontinuing her beta blockers. I am going to decrease her metoprolol to 25 mg daily and see whether that improves some of her symptoms. Exam (Progress Note) - Constitutional Vitals: Period Temp Pulse Resp BP Sys/Luna Pulse Ox Last 24 Hr 96.0 F-97.8 F 59-83 16-18 109-122/50-62 95-99 Exam: General:no acute distress. alert and oriented, mood and affect are normal HEENT: no new lesions, sclerae are clear, mouth and pharynx benign Neck: supple, trachea midline, no JVD noted Lungs: no rales ronchi or wheeze is noted. pt comfortable without accesory muscle use to assist with breathing CV: RRR no murmur rub or gallop is noted. Abd: soft and nontender, BSNA, no masses. Ext: no cyanosis, clubbing or edema Neuro: grossly intact without focal neurologic deficit. Result/EKG - Labs CBC & BMP: 09/02/16 05:40 09/02/16 05:40
[2016-09-03] MEDS ORDERED: METOPROLOL TARTRATE 25 MG TABLET PO SCH (09:00)
[2016-09-03] MEDS: METOCLOPRAMIDE 10 MG/2 ML VIAL IV PRN (09:46)
[2016-09-03] MEDS: CLORAZEPATE 3.75 MG TABLET PO PRN ×2 (10:07→10:14)
[2016-09-03] MEDS: MAGNESIUM OXIDE 400 MG TABLET PO SCH ×2 (13:16→21:40)
[2016-09-03] MEDS: ASPIRIN EC 81 MG TABLET PO SCH (13:16)
[2016-09-03] MEDS: EZETIMIBE 10 MG TABLET PO SCH (13:16)
[2016-09-03] MEDS: METOPROLOL TARTRATE 25 MG TABLET PO SCH (13:17)
[2016-09-03] MEDS: FUROSEMIDE 40 MG TABLET PO SCH (13:18)
[2016-09-03] MEDS: PANTOPRAZOLE 40 MG TABLET PO SCH (13:18)
[2016-09-03] MEDS: LOSARTAN 25 MG TABLET PO SCH ×2 (13:18→21:40)
[2016-09-03] MEDS: CHOLECALCIFEROL 1,000 UNIT TABLET PO SCH (13:18)
[2016-09-03] MEDS: amLODIPine 5 MG TABLET PO SCH ×2 (13:20→21:40)
[2016-09-03] MEDS: WARFARIN 7.5 MG TABLET PO SCH (17:43)
[2016-09-03] MEDS ORDERED: ESCITALOPRAM 10 MG TABLET PO SCH (21:00)
--- NOTE | 2016-09-04 08:21 | Electrophysiology Progress Not ---
Assessment and Plan (1) Pulmonary hypertension Status: Chronic Assessment and plan: 76-year-old female, with worsening shortness of breath, since AV node ablation, dual-chamber pacemaker implantation, now in persistent atrial fibrillation, moderate pulmonary hypertension, hypertension, hyperlipidemia, volume overload. -At this time, I recommend monitoring her symptoms as outpatient with recent therapeutic interventions. She was started on CPAP treatment and the pacer settings were adjusted to decrease the amount of rate response and decreased her base pacing rate. Some of her symptoms were likely related to loss of atrial function and diastolic dysfunction. Anxiety also played a role. -If she remains symptomatic and has issues with exertion, we may consider PVI. Anticipated benefits after AV node ablation are less, but symptoms had a sudden onset when rhythm control was abandoned and became paced after AVN ablation. LVEF preserved, not a candidate for LEAD CUSTOMER SERVICE REPRESENTATIVE upgrade. -Cont anticoagulation -Recommend follow-up with EP in 4 weeks Current Visit: No (2) Chronic anticoagulation Status: Chronic Current Visit: No (3) Diverticulosis Status: Chronic Current Visit: No (4) Hypertension Status: Chronic Current Visit: No (5) Hyperlipidemia Status: Chronic Current Visit: No (6) Volume overload Status: Acute Current Visit: Yes (7) History of atrioventricular winston ablation Status: Chronic Current Visit: Yes (8) IBS (irritable bowel syndrome) Status: Chronic Current Visit: Yes Electrophysiology Subjective Interval history: She is feeling better. The nausea resolved. Still feels some quivering in her chest occasionally. Heart rate trend in physiological range on telemetry, atrial fibrillation, V paced. The lower extremity edema resolved. Exam - Constitutional Vitals: Period Temp Pulse Resp BP Sys/Luna Pulse Ox Last 24 Hr 96 F-98.2 F 60-85 14-18 104-127/55-65 92-98 General appearance: normal weight, over weight - Head Head exam: Present: normal inspection, normocephalic - Eye Eye exam: Absent: conjunctival injection, scleral icterus Pupils: Absent: dilated - ENT ENT exam: Present: normal external ear exam - Neck Neck exam: Present: normal inspection - Respiratory Respiratory exam: Present: clear to auscultation bilaterally. Absent: rhonchi, wheezes - Cardiovascular Cardiovascular exam: Present: regular rate and rhythm, systolic murmur. Absent : JVD - GI/Abdominal GI/Abdominal exam: Present: normal bowel sounds. Absent: distended, guarding - Extremities Exam Extremities exam: Present: normal inspection, normal capillary refill. Absent: edema - Back Exam Back exam: Present: normal inspection - Neurological Exam Neurological exam: Present: alert, oriented X3 - Psychiatric Psychiatric exam: Present: normal affect, normal mood - Skin Skin exam: Present: normal color, warm. Absent: cyanosis Results - Labs CBC & BMP: 09/02/16 05:40 09/02/16 05:40 Lab Results: I have reviewed the past 24 hour labs
[2016-09-04] MEDS: EZETIMIBE 10 MG TABLET PO SCH (09:00)
[2016-09-04] MEDS: MAGNESIUM OXIDE 400 MG TABLET PO SCH (09:00)
[2016-09-04] MEDS: CHOLECALCIFEROL 1,000 UNIT TABLET PO SCH (09:01)
[2016-09-04] MEDS: ASPIRIN EC 81 MG TABLET PO SCH (09:01)
[2016-09-04] MEDS: FUROSEMIDE 40 MG TABLET PO SCH (09:01)
[2016-09-04] MEDS: amLODIPine 5 MG TABLET PO SCH (09:01)
[2016-09-04] MEDS: LOSARTAN 25 MG TABLET PO SCH (09:01)
[2016-09-04] MEDS: METOPROLOL TARTRATE 25 MG TABLET PO SCH (09:01)
[2016-09-04] MEDS: PANTOPRAZOLE 40 MG TABLET PO SCH (09:01)
[2016-09-04 10:39] LABS: INR 3.4
[2016-09-04 10:41] LABS: PT Patient Result 38.5 SECS
--- NOTE | 2016-09-04 10:42 | Pulmonology Progress Note ---
Pulmonary - PN: Subj Interval history: Mrs. Gutiérrez is a 76 year old white female who we saw in initial pulmonary consultation on 08/31/16. At that time, our impressions were: 1. Pulmonary hypertension which is being treated at [facility]. July 2016 right heart cath was felt to be acceptable. Recurrent right-sided edema is a little bit worrisome especially in the face of an enlarged right ventricle by echocardiographic criteria 2. Atrial fib. Poor control 3. Dyspnea on exertion. This is most likely related to atrial fib and possibly secondary to mild pulmonary hypertension. 4. Chronic Coumadin therapy 09/01/2016. Will walk in the room, the patient was leaned over the bed with her head toward a garbage can. She is extremely nauseated this morning. She is unsure why. She thinks she may have eaten some bad food, but she cannot be sure. She states that she was given an antinausea medication this morning. On review of her records this was Phenergan IV. Dr. Rodrigues has also ordered as needed Reglan for nausea. From a pulmonary standpoint, she seems to be doing reasonably well. Doppler venograms showed no evidence of DVT in either lower extremity. Her pacemaker settings have been adjusted. Her HST is pending. Medications have been reviewed. We made no changes today. Labs been reviewed. White count is 5500 with 54.5% segs; H&H 12.7/37.8; platelet count 198,000; creatinine 1.40, BUN 27, sodium 138, potassium 3.4; calcium 9.4, albumin 3.6, total protein 7.1; liver function tests are normal with the exception of a minimally elevated alkaline phosphatase of 136; total bilirubin elevated at 1.70; cardiac enzymes are negative 09/04/2016. Patient seen along with her . Her nausea which appears to have been due to medications has resolved. Patient Doppler venograms were negative. Her sleep studies were positive for obstructive sleep apnea. I think there is a good chance this patient will do a lot better with the addition of the studies. This was discussed with her. Also discussed her pulmonary arterial hypertension. She has been followed at [facility] and I agree with their plans peer. I will sign off. Call if needed. Exam (Progress Note) - Constitutional Vitals: Period Temp Pulse Resp BP Sys/Luna Pulse Ox Last 24 Hr 96.8 F-97.8 F 63-87 16-20 96-130/52-66 91-97 Exam: Psychiatric oriented 3. General no apparent distress Head eyes ears nose and throat appear to be normal. Face is symmetrical. No edema of the lips or tongue. Neck. Symmetrical. No meningismus. Lymphatics. No submandibular cervical supraclavicular or epitrochlear adenopathy Chest is clear Heart is irregular but no definite gallop Abdomen with mild right upper quadrant tenderness with palpation; no rebounding or guarding; bowel sounds are hyperactive 4 Extremities with nothing to suggest acute deep venous thrombophlebitis Psychiatric oriented 3 Neurologic long-term motor function is intact The remainder the physical exam is noncontributory Plan. 1. Continue present regimen. 2. Treat obstructive sleep apnea 3. Follow-up at [facility]. 4. Patient does not need an appointment to see me 5. I will sign off. Reconsult if needed Exam (Progress Note) - Constitutional Vitals: Period Temp Pulse Resp BP Sys/Luna Pulse Ox Last 24 Hr 96 F-98.2 F 60-85 14-18 104-127/55-65 92-98 Results - Labs CBC & BMP: 09/02/16 05:40 09/02/16 05:40 Specialty Discharge - Follow Up or Referrals Follow up with: Abdulaziz Rodrigues MD [Physician] - 1 Month (with EKG) Luis Avendaño MD [Physician] - 2 Weeks (with bmp mag cbc pt/inr ekg)
[2016-09-04 12:06] VITALS: BP 109/63
--- NOTE | 2016-09-04 14:26 | Discharge Summary ---
IMaty April, RN, am scribing for, and in the presence of, Bob Ferguson MD 14:26. Hospital Course - Hospital Course Hospital Course: MANUFACTURING SCHEDULER: DR. AVENDAÑO PCP: DR. JULIA GREEN SUMMARY: Ms. Espino is a 76 year old female with history of paroxysmal atrial fibrillation, pulmonary hypertension, diverticulosis, GERD, esophageal stricture, hypertension, hyperlipidemia who was transferred to our facility from [facility] for further evaluation of CHF. She has had worsening SOB since her AV node ablation and dual-chamber pacemaker implantation. She is now in persistent atrial fibrillation with volume overload. Although most patients do feel better with proper rate control after AV node ablation/pacemaker implantation, in this case it seems to have exacerbated her underlying diastolic dysfunction. She is not a candidate for MOLD BREAKER, ejection fraction is preserved. Echo done this admission with ejection fraction of 55-60%. Of note her dyspnea has improved today prior to discharge. This morning Ms. Espino is seen resting in bed no acute distress. She denies any chest pain or shortness of breath. She reports she still has some fluttering in her chest. Her metoprolol was decreased yesterday and she reports her nausea has been relieved today. Vital signs been stable. Venous Dopplers were negative for DVT in either lower extremity. INR this morning is 3.4, we will change her back to her home dosing of warfarin. Of note LDL was elevated in the 150s and she is on Zetia, and reportedly has a reaction to statins in general. It is felt she has been on maximum benefit from hospitalization and will be discharged today.Sleep medicine has seen her in consultation, she has been tried on CPAP. We will get them to see her in follow-up after discharge. We will schedule follow-up with Dr. Rodrigues in 4 weeks. We will also get her to follow up with Dr. Avendaño in 2 weeks with labs. She will be discharged home on the following medications: Aspirin 81 mg daily Pantoprazole 40 mg nightly Magnesium oxide 400 mg twice daily Amlodipine 5 mg twice daily Warfarin 7.5 mg TThSaSu Warfarin 5 mg MWF Vitamin D3 1000 units daily Estradiol 0.5 mg every other day Toprol 25 mg daily Losartan 12.5 mg twice daily Alprazolam 1 mg nightly Tapentadol 50 mg as needed Furosemide 40 mg daily Lexapro 10 mg daily Zetia 10 mg daily I have interviewed and examined Ms. Espino, and agree with note above that is made amendments as needed. ANGEL Meaodws - Time spent with patient Time with patient DS: Greater than 30 minutes Diagnosis - Discharge Diagnosis (1) Chronic nausea Status: Resolved (2) SLATER (dyspnea on exertion) Status: Resolved (3) Unspecified sleep apnea Status: Chronic (4) Hyperlipidemia Status: Chronic (5) Hypertension Status: Chronic (6) Paroxysmal atrial fibrillation Status: Chronic Specialty Discharge - Follow Up or Referrals Follow up with: Abdulaziz Rodrigues MD [Physician] - 10/05/16 1:30 pm (with EKG) Luis Avendaño MD [Physician] - 09/26/16 11:00 am (with [facility] cbc pt/inr ekg) Discharge Plan - Discharge Data Disposition: Disch To Home/Self Care Condition at Discharge: Stable Discharge Diet: heart healthy Activity: resume usual activities as tolerated Hygiene: no restrictions Weight Bearing at Discharge: weight bear as tolerated Driving: no restrictions Contact your physician if you experience:: fever over 101, Difficulty voiding, Redness or swelling, Nausea/Vomiting, Shortness of breath, Bleeding, pain uncontrolled by pain medications - Discharge Medications New Escitalopram [Lexapro] 10 mg PO BEDTIME #30 tablet Ezetimibe [Zetia] 10 mg PO DAILY #30 tablet Metoprolol Succinate Xl [Toprol Xl] 25 mg PO DAILY #30 tablet Continue Aspirin EC Tab 81 mg PO DAILY Pantoprazole Tab [Protonix Tab] 40 mg PO BEDTIME Magnesium Oxide [Magox 400] 400 mg PO BID amLODIPine [Norvasc] 5 mg PO BID Warfarin [Coumadin] 5 mg PO MOWEFR Warfarin [Coumadin] 7.5 mg PO SUTUTHSA Losartan [Cozaar] 12.5 mg PO BID ALPRAZolam [Alprazolam] 1 mg PO BEDTIME Tapentadol HCl [Nucynta] 50 mg PO Q6HR PRN PRN Reason: Pain Cholecalciferol (Vitamin D3) [Vitamin D3] 1,000 unit PO DAILY Estradiol Tab [Estrace Tab] 0.5 mg PO QOTHER DAY Furosemide 40 mg PO DAILY Discontinued Metoprolol Tartrate Tab [Lopressor Tab] 50 mg PO BID - Follow Up or Referral Follow Up: Abdulaziz Rodrigues MD [Physician] - 10/05/16 1:30 pm (with EKG) Luis Avendaño MD [Physician] - 09/26/16 11:00 am (with [facility] cbc pt/inr ekg) - Forms/Instructions Exam - Constitutional Vitals: Period Temp Pulse Resp BP Sys/Luna Pulse Ox Last 24 Hr 96 F-98.2 F 60-85 14-18 104-127/55-65 92-98 General appearance: no acute distress - Head Head exam: Absent: abrasion, hematoma - Eye Eye exam: Absent: periorbital swelling, laceration to eyelids - Respiratory Respiratory exam: Present: clear to auscultation bilaterally. Absent: accessory muscle use, chest wall tenderness - Cardiovascular Cardiovascular exam: Present: regular rate and rhythm, systolic murmur - GI/Abdominal GI/Abdominal exam: Present: normal bowel sounds, soft. Absent: distended, tenderness - Neurological Exam Neurological exam: Present: alert, oriented X3 - Psychiatric Psychiatric exam: Present: normal affect, normal mood - Skin Skin exam: Present: warm, dry Discharge Results Labs on day of discharge: Labs from last 24 hours 09/04/16 10:15 INR 3.4 PT Patient/Control Mix 38.5 D - Imaging and Cardiology Procedure: Chest x-ray: report reviewed by me DS: Provider Consults: 08/30/16 13:59 Consult to Physician [CONS] Routine Comment: possible PM upgrade to BiV Consulting Provider: Abdulaziz Rodrigues Person Notified: [email or web address] Date Notified: 08/30/16 Time Notified: 14:45 08/31/16 11:49 Consult to Physician [CONS] Routine Comment: eval for secondary causes of pulm htn, PFTs? Consulting Provider: Paul Richardson Consult to Specialist Group: Pulmonology When should Consulting Provider be notified: Farhad Person Notified: moe Date Notified: 08/31/16 Time Notified: 12:25 Consult to Sleep Center [CONS] Routine Reason for Sleep Center: Sleep Center Physician Consult Comment: pulmonary hypertension, suspected sleep disorder Phyllis Osullivan Randall Scott, MD, personally performed the services described in this documentation, ascribed by Malu Rutledge RN in my presence, and it is both accurate and complete [id number] .
--- NOTE | 2016-09-04 15:23 | Sleep Medicine Progress Note ---
Assessment and Plan (1) Unspecified sleep apnea Status: Chronic Assessment and plan: Set up outpatient CPAP titration after discharge (scheduled). (2) Paroxysmal atrial fibrillation Status: Chronic (3) Pulmonary hypertension Status: Chronic Sleep Medicine Subjective Interval history: Patient doing well on cpap auto and compliant. Still having some events despite CPAP and given her cardiac issues of afib and pulm hypertension, think we need to bring her in for formal cpap titration. Discussed with her and to their understanding. Exam (Progress Note) - Constitutional Vitals: Period Temp Pulse Resp BP Sys/Luna Pulse Ox Last 24 Hr 96 F-98.2 F 60-85 14-18 104-123/55-65 92-98 Exam: alert and oriented. Oropharynx with class 3 Malampati exam. Neck supple without adenopathy. Chest clear with wheeze or rhonchi. Heart with regular rhythm and rate without murmur. Abdomen soft and nontender without HSM. Extremeties without increased edema. Neuro grossly intact and moving all extremeties with good strength. Results - Labs CBC & BMP: 09/02/16 05:40 09/02/16 05:40 Lab Results: I have reviewed the past 24 hour labs Specialty Discharge - Follow Up or Referrals Follow up with: Abdulaziz Rodrigues MD [Physician] - 10/05/16 1:30 pm (with EKG) Luis Avendaño MD [Physician] - 09/26/16 11:00 am (Appt. for PT/INR on 09/11/16 at 10:30 at [facility])
[2016-09-04] MEDS ORDERED: WARFARIN 5 MG TABLET PO SCH (18:00)
--- NOTE | 2016-09-05 07:47 | Physician Query Form ---
CLICK EDIT DOCUMENT TO SELECT QUERY ANSWER --> OK --> SIGN Moni Campuzano RN, CCDS Certified Clinical Electrical Unit Rebuilder W) [phone] (f) [phone] [email or web address] PROVIDERS: Make your selection(s) from the choices in EACH section by typing an "x" and enter comments in the comment section. Please use your independent medical judgment in providing your response. This request does not imply that any particular answer is desired or expected. CLINICAL INDICATORS: (Providers should not edit this section) The medical record indicates that the patient was admitted with AF, volume overload, evaluation of CHF, "Ejection fraction of 55-60%", "underlying diastolic dysfunction", BNP of 198# on the 12th and the patient was treated with IV Lasix. Please provide further specificity regarding CHF. ACUITY: ( ) Acute ( ) Chronic ( ) Acute on Chronic ( ) Clinically unable to determine TYPE: ( ) Systolic (HFrEF - heart failure with reduced systolic function/EF) ( ) Diastolic (HFpEF - heart failure with preserved systolic function/EF) ( ) Combined Systolic/Diastolic ( ) Other, please specify: ( ) Clinically unable to determine ( ) The patient does NOT have CHF COMMENTS: PLEASE ALSO DOCUMENT RESPONSE IN PROGRESS NOTES AND/OR DISCHARGE SUMMARY Use of terms such as suspected, likely, or probable (associated with a specific diagnosis that is being evaluated, monitored, or treated as if it exists) are acceptable and can be restated in the discharge summary if not ruled out. MTDD
[2016-09-05] MEDS ORDERED: METOPROLOL SUCCINATE XL 25 MG TABLET PO SCH (09:00)
[2016-09-05] MEDS ORDERED: WARFARIN 7.5 MG TABLET PO SCH (18:00)
--- NOTE | 2016-09-14 14:47 | Physician Query Form ---
CLICK EDIT DOCUMENT TO SELECT QUERY ANSWER --> OK --> SIGN Moni Campuzano RN, CCDS Certified Clinical Shipping Hand W) [phone] (f) [phone] [email or web address] PROVIDERS: Make your selection(s) from the choices in EACH section by typing an "x" and enter comments in the comment section. Please use your independent medical judgment in providing your response. This request does not imply that any particular answer is desired or expected. CLINICAL INDICATORS: (Providers should not edit this section) The medical record indicates that the patient was admitted with AF, volume overload, evaluation of CHF, "Ejection fraction of 55-60%", "underlying diastolic dysfunction", BNP of 198# on the 12th and the patient was treated with IV Lasix. Please provide further specificity regarding CHF. ACUITY: ( ) Acute ( ) Chronic (X ) Acute on Chronic ( ) Clinically unable to determine TYPE: ( ) Systolic (HFrEF - heart failure with reduced systolic function/EF) ( X) Diastolic (HFpEF - heart failure with preserved systolic function/EF) ( ) Combined Systolic/Diastolic ( ) Other, please specify: ( ) Clinically unable to determine ( ) The patient does NOT have CHF COMMENTS: PLEASE ALSO DOCUMENT RESPONSE IN PROGRESS NOTES AND/OR DISCHARGE SUMMARY Use of terms such as suspected, likely, or probable (associated with a specific diagnosis that is being evaluated, monitored, or treated as if it exists) are acceptable and can be restated in the discharge summary if not ruled out. MTDD
== END 2016-09-04 15:19 | disposition home or self-care (01) | DRG 310 ==
LOC: N.TELES 11:27 → INTOOBSV 11:27
PROVIDERS: ADMIT Internal Medicine Interventional Cardiology; ATTEND Internal Medicine Interventional Cardiology

== ENCOUNTER 2018-08-21 11:28 | Inpatient (IN) ==
[2018-08-21] MEDS ORDERED: ONDANSETRON 4 MG/2 ML VIAL IV PRN (14:20)
[2018-08-21] MEDS ORDERED: MORPHINE 4 MG/1 ML VIAL IV PRN (14:20)
[2018-08-21 14:47] LABS: Basophils % 0.2 % (0.0-0.8); Eosinophils % 0.2 % (0.00-10.9); Hematocrit 36.1 VOL% (35.7-47.0); Hemoglobin 11.3 GM/DL (12.0-16.0); Immature Granulocytes % 0.2 %; Immature Granulocytes Absolute 0.02 #; Lymphocytes # 1.1 10*3/uL (1.4-4.0); Lymphocytes % 13.9 % (21.3-54.2); Mean Corpuscular HGB Conc 31.3 GM/DL (32-36); Mean Corpuscular Volume 91.2 FL (87-102); Neutrophils % 78.5 % (38.7-73.9); Platelet Count 183 T/CUMM (130-400); Red Blood Count 3.96 MC/CUMM (3.8-5.5); Red Cell Distribution Width 13.7 % (9.3-17.3); White Blood Count 8.2 T/CUMM (4-12)
[2018-08-21 14:56] LABS: INR 2.7
[2018-08-21 14:57] LABS: PT Patient Result 29.2 SECS
[2018-08-21] MEDS: SODIUM CHLORIDE 0.9% 1,000 ML IV SCH (15:09)
[2018-08-21 15:12] LABS: Albumin 3.7 G/DL (3.4-5.0); Bilirubin,Total 0.7 MG/DL (0.2-1.0); Calcium 9.4 MG/DL (8.5-10.1); Osmolality,Calculated 284.4 MOS/KG (273-304); Total Protein 7.6 G/DL (6.4-8.3)
[2018-08-21] MEDS: cefTRIAXone 1,000 MG in SYRINGE 1 EACH IV SCH (16:08)
[2018-08-21] MEDS: WARFARIN 5 MG TABLET PO SCH (18:45)
[2018-08-21] MEDS: VANCOMYCIN INJ 1,000 MG in SODIUM CHLORIDE 0.9% 250 ML IV SCH (20:55)
[2018-08-21] MEDS: METOPROLOL TARTRATE 25 MG TABLET PO SCH (20:55)
[2018-08-21] MEDS: amLODIPine 5 MG TABLET PO SCH (20:55)
[2018-08-22 05:36] LABS: Basophils % 0.3 % (0.0-0.8); Eosinophils % 0.4 % (0.00-10.9); Hematocrit 32.3 VOL% (35.7-47.0); Hemoglobin 10.3 GM/DL (12.0-16.0); Immature Granulocytes % 0.4 %; Immature Granulocytes Absolute 0.03 #; Lymphocytes # 1.4 10*3/uL (1.4-4.0); Lymphocytes % 17.9 % (21.3-54.2); Mean Corpuscular HGB Conc 31.9 GM/DL (32-36); Mean Corpuscular Volume 91.2 FL (87-102); Mean Platelet Volume 12.9 FL (9.6-12.0); Monocytes % 9.3 % (1.7-12.7); Neutrophils % 71.7 % (38.7-73.9); Platelet Count 165 T/CUMM (130-400); Red Blood Count 3.54 MC/CUMM (3.8-5.5); Red Cell Distribution Width 13.7 % (9.3-17.3); White Blood Count 7.5 T/CUMM (4-12)
[2018-08-22 06:15] LABS: Calcium 9.1 MG/DL (8.5-10.1); Osmolality,Calculated 284.3 MOS/KG (273-304); Risk Ratio 3.17; Thyroid Stimulating Hormone 0.978 uIU/ml (0.358-3.74)
[2018-08-22] MEDS: LOSARTAN 25 MG TABLET PO SCH (09:01)
[2018-08-22] MEDS: PANTOPRAZOLE 40 MG TABLET PO SCH (09:01)
[2018-08-22] MEDS: amLODIPine 5 MG TABLET PO SCH ×2 (09:01→20:42)
[2018-08-22] MEDS: SODIUM CHLORIDE 0.9% 1,000 ML IV SCH (09:04)
[2018-08-22] MEDS: FUROSEMIDE 40 MG TABLET PO SCH (13:02)
[2018-08-22] MEDS ORDERED: PROMETHAZINE 25 MG TABLET PO PRN (15:41)
[2018-08-22] MEDS: VANCOMYCIN INJ 1,000 MG in SODIUM CHLORIDE 0.9% 250 ML IV SCH (17:34)
[2018-08-22] MEDS: cefTRIAXone 1,000 MG in SYRINGE 1 EACH IV SCH (18:38)
[2018-08-22] MEDS: WARFARIN 5 MG TABLET PO SCH (18:49)
[2018-08-22] MEDS: METOPROLOL TARTRATE 25 MG TABLET PO SCH (20:42)
[2018-08-23 05:34] LABS: Basophils % 0.5 % (0.0-0.8); Eosinophils % 0.4 % (0.00-10.9); Hematocrit 32.9 VOL% (35.7-47.0); Hemoglobin 10.3 GM/DL (12.0-16.0); Immature Granulocytes % 0.4 %; Immature Granulocytes Absolute 0.03 #; Lymphocytes # 1.4 10*3/uL (1.4-4.0); Lymphocytes % 16.8 % (21.3-54.2); Mean Corpuscular HGB Conc 31.3 GM/DL (32-36); Mean Corpuscular Volume 90.9 FL (87-102); Mean Platelet Volume 12.5 FL (9.6-12.0); Monocytes % 9.6 % (1.7-12.7); Neutrophils % 72.3 % (38.7-73.9); Platelet Count 174 T/CUMM (130-400); Red Blood Count 3.62 MC/CUMM (3.8-5.5); Red Cell Distribution Width 13.7 % (9.3-17.3); White Blood Count 8.1 T/CUMM (4-12)
[2018-08-23 05:54] LABS: Calcium 8.9 MG/DL (8.5-10.1); Osmolality,Calculated 282.3 MOS/KG (273-304)
[2018-08-23] MEDS ORDERED: ESTRADIOL 1 MG TABLET PO SCH (08:00)
[2018-08-23] MEDS: FUROSEMIDE 40 MG TABLET PO SCH (09:43)
[2018-08-23] MEDS: amLODIPine 5 MG TABLET PO SCH ×2 (09:43→20:20)
[2018-08-23] MEDS: PANTOPRAZOLE 40 MG TABLET PO SCH (09:43)
[2018-08-23] MEDS: LOSARTAN 25 MG TABLET PO SCH (09:43)
[2018-08-23] MEDS: ACETAMINOPHEN 325 MG TABLET PO PRN (14:28)
[2018-08-23] MEDS: VANCOMYCIN INJ 1,000 MG in SODIUM CHLORIDE 0.9% 250 ML IV SCH (18:25)
[2018-08-23] MEDS: WARFARIN 5 MG TABLET PO SCH (18:25)
[2018-08-23] MEDS: METOPROLOL TARTRATE 25 MG TABLET PO SCH (20:20)
[2018-08-24] MEDS: ACETAMINOPHEN 325 MG TABLET PO PRN (00:34)
[2018-08-24 07:46] VITALS: BP 129/71
[2018-08-24 09:18] LABS: INR 1.8; PT Patient Result 19.7 SECS
[2018-08-24] MEDS: amLODIPine 5 MG TABLET PO SCH (09:38)
[2018-08-24] MEDS: FUROSEMIDE 40 MG TABLET PO SCH (09:38)
[2018-08-24] MEDS: PANTOPRAZOLE 40 MG TABLET PO SCH (09:38)
[2018-08-24] MEDS: LOSARTAN 25 MG TABLET PO SCH (09:38)
== END 2018-08-24 11:33 | disposition home or self-care (01) | DRG 603 ==
LOC: N.2E → SUATTDRO 12:58
PROVIDERS: ADMIT Internal Medicine; ATTEND Internal Medicine